=== PATIENT | male | born 1970 | race Caucasian/White ===

== ENCOUNTER → 2020-03-22 | Outpatient (CLI) | payer OTHER, SELFPAY ==
[2020-03-22 14:56] VITALS: BMI 31.0
[2020-03-22 19:50] LABS: Absolute Lymphocyte Count 1.27 X10^3/uL (0.83-4.51); Absolute Neutrophil Count 3.4 X10^3/uL (2.0-7.7); Basophil# 0.04 X10^3/uL; Basophil% 0.7 % (0-1); Eosinophil# 0.14 X10^3/uL; Eosinophils% 2.6 % (0-5); Hematocrit 50.4 % (40-54); Lymphocyte # 1.27 X10^3/ul (4.0); Lymphocyte % 23.5 % (19-41); Mean Corp Hgb Conc 31.7 g/dL (32-36); Mean Corpuscular Volume 94.6 fL (80-94); Mean Platelet Vol. 10.3 fl (6.2-12.0); Monocyte# 0.51 X10^3/uL; Monocyte% 9.4 % (0-10); NRBC Flagged by Analyzer 0 % (0-5); Neutrophil # 3.43 X10^3/uL (2.7-7.7); Neutrophil % 63.6 % (47-70); Platelet Count 248 K/mm3 (150-450); RBC Distribution Width CV 12.6 % (11.6-14.6); RBC Distribution Width SD 44.1 fl (35.1-43.9); Red Blood Count 5.33 M/mm3 (4.6-6.2); White Blood Count 5.4 K/mm3 (4.4-11.0)
[2020-03-22 20:34] LABS: ALB/GLOB Ratio 1.2 RATIO (0.9-2.4); AST(SGOT) 21 U/L (15-37); Alanine Aminotransfer ALT/SGPT 47 U/L (16-61); Albumin, Serum 4.4 g/dL (3.2-5.0); Alkaline Phosphatase 115 U/L (45-117); Anion Gap 5 (5-15); BUN 14 mg/dL (7-18); BUN/Creat Ratio 13.1 RATIO (10-20); Calcium,Total 9.2 mg/dL (8.5-10.1); Chloride 107 mmol/L (98-107); Cholesterol 273 mg/dL (200); Creatinine, Serum 1.07 mg/dL (0.70-1.30); EST Glomerular Filtration Rate 77 mL/min (>60); Est Glom Filt Rate - Afr Amer 94 mL/min (>60); Globulin 3.6 g/dL (2.2-4.2); Glucose 88 mg/dL (74-106); High Density Lipoprotein 51 mg/dL; Sodium Level 140 mmol/L (136-145); Triglycerides 106 mg/dL; Very Low Density Lipoprotein 21 mg/dL (5-40)
== END | disposition home or self-care (01) ==
PROVIDERS: Visit Provider Nurse Practitioner
DX: I10 Essential (primary) hypertension (principal)
CPT/HCPCS: 80053; 80061; 84443; 85025

== ENCOUNTER 2020-06-08 08:00 | Outpatient (RCR) | payer OTHER, SELFPAY ==
[2020-04-17 17:31] VITALS: BMI 31.0
[2020-06-08] MEDS: COVID-19 VACC, MRNA(PFIZER)/PF 30 MCG/0.3 ML SYRINGE IM (11:47)
[2020-06-29] MEDS: COVID-19 VACC, MRNA(PFIZER)/PF 30 MCG/0.3 ML SYRINGE IM (11:16)
== END 2020-06-08 23:59 ==
LOC: IMMUN 08:00
PROVIDERS: Visit Provider Family Medicine
DX: Z23 Encounter for immunization (principal)
CPT/HCPCS: 0001A; 0002A; 91300

== ENCOUNTER 2021-06-14 22:20 | Outpatient (CLI) | payer OTHER, SELFPAY ==
[2021-06-14 22:43] LABS: ALB/GLOB Ratio 1.1 RATIO (0.9-2.4); AST(SGOT) 22 U/L (15-37); Alanine Aminotransfer ALT/SGPT 36 U/L (16-61); Albumin, Serum 4.1 g/dL (3.2-5.0); Alkaline Phosphatase 116 U/L (45-117); Anion Gap 3 (5-15); BUN 13 mg/dL (7-18); BUN/Creat Ratio 9.6 RATIO (10-20); Calcium,Total 9.5 mg/dL (8.5-10.1); Chloride 110 mmol/L (98-107); Cholesterol 272 mg/dL (200); Creatinine, Serum 1.35 mg/dL (0.70-1.30); EST Glomerular Filtration Rate 59 mL/min (>60); Est Glom Filt Rate - Afr Amer 71 mL/min (>60); Globulin 3.8 g/dL (2.2-4.2); Glucose 123 mg/dL (74-106); High Density Lipoprotein 51 mg/dL; Potassium 5.1 mmol/L (3.5-5.1); Protein, Total 7.9 g/dL (6.4-8.2); Sodium Level 143 mmol/L (136-145); Triglycerides 125 mg/dL; Very Low Density Lipoprotein 25 mg/dL (5-40)
[2021-06-14 22:47] LABS: Absolute Lymphocyte Count 1.48 X10^3/uL (0.83-4.51); Basophil# 0.04 X10^3/uL; Basophil% 0.6 % (0-1); Eosinophil# 0.12 X10^3/uL; Eosinophils% 1.7 % (0-5); Hematocrit 50.4 % (40-54); Hemoglobin 16.7 g/dL (13.0-16.5); Lymphocyte # 1.48 X10^3/ul (0.83-4.51); Lymphocyte % 20.6 % (19-41); Mean Corp Hgb Conc 33.1 g/dL (32-36); Mean Corpuscular Hgb 31.3 pg (27.0-32.0); Mean Corpuscular Volume 94.4 fL (80-94); Mean Platelet Vol. 11.1 fl (6.2-12.0); Monocyte# 0.51 X10^3/uL; Monocyte% 7.1 % (0-10); NRBC Flagged by Analyzer 0 % (0-5); Neutrophil # 5.02 X10^3/uL (2.7-7.7); Neutrophil % 69.7 % (47-70); Platelet Count 299 K/mm3 (150-450); RBC Distribution Width CV 12.9 % (11.6-14.6); RBC Distribution Width SD 44.6 fl (35.1-43.9); Red Blood Count 5.34 M/mm3 (4.6-6.2); White Blood Count 7.2 K/mm3 (4.4-11.0)
== END 2021-06-14 23:59 | disposition home or self-care (01) ==
PROVIDERS: Nurse Practitioner
DX: Z00.00 Encounter for general adult medical examination without abnormal findings (principal); Z12.5 Encounter for screening for malignant neoplasm of prostate
CPT/HCPCS: 80053; 80061; 84153; 85025; G0103

== ENCOUNTER → 2021-09-11 | Outpatient (CLI) | payer OTHER, SELFPAY ==
[2021-09-11 21:26] LABS: Absolute Lymphocyte Count 1.35 X10^3/uL (0.83-4.51); Absolute Neutrophil Count 4.2 X10^3/uL (2.0-7.7); Basophil# 0.04 X10^3/uL; Basophil% 0.7 % (0-1); Eosinophil# 0.11 X10^3/uL; Eosinophils% 1.8 % (0-5); Hematocrit 45.5 % (40-54); Lymphocyte # 1.35 X10^3/ul (0.83-4.51); Lymphocyte % 22.4 % (19-41); Mean Corpuscular Hgb 30.7 pg (27.0-32.0); Mean Corpuscular Volume 93.2 fL (80-94); Mean Platelet Vol. 10.6 fl (6.2-12.0); Monocyte# 0.34 X10^3/uL; Monocyte% 5.6 % (0-10); NRBC Flagged by Analyzer 0 % (0-5); Neutrophil # 4.15 X10^3/uL (2.7-7.7); Platelet Count 274 K/mm3 (150-450); RBC Distribution Width SD 44.7 fl (35.1-43.9); Red Blood Count 4.88 M/mm3 (4.6-6.2)
[2021-09-11 22:38] LABS: ALB/GLOB Ratio 1.1 RATIO (0.9-2.4); AST(SGOT) 21 U/L (15-37); Alanine Aminotransfer ALT/SGPT 44 U/L (16-61); Albumin, Serum 3.9 g/dL (3.2-5.0); Alkaline Phosphatase 105 U/L (45-117); Anion Gap 9 (5-15); BUN 14 mg/dL (7-18); BUN/Creat Ratio 12.6 RATIO (10-20); CRP, High Sensitivity Cardiac 3.69 mg/L; Calcium,Total 9.3 mg/dL (8.5-10.1); Chloride 108 mmol/L (98-107); Creatinine, Serum 1.11 mg/dL (0.70-1.30); EST Glomerular Filtration Rate 74 mL/min (>60); Est Glom Filt Rate - Afr Amer 89 mL/min (>60); Globulin 3.6 g/dL (2.2-4.2); Glucose 145 mg/dL (74-106); Potassium 3.9 mmol/L (3.5-5.1); Protein, Total 7.5 g/dL (6.4-8.2); Sodium Level 138 mmol/L (136-145); Thyroid Stim Hormone (TSH) 1.69 uIU/mL (0.358-3.74)
[2021-09-13 13:21] LABS: PSA, Free 1.21 ng/mL; PSA, Free % 10.4 % (.); PSA, Total Ultrasensitive 11.6 ng/mL (0.0-4.0)
== END | disposition home or self-care (01) ==
PROVIDERS: Referring Provider Nurse Practitioner; Visit Provider Nurse Practitioner
DX: I10 Essential (primary) hypertension (principal); R55 Syncope and collapse; R97.20 Elevated prostate specific antigen [PSA]
CPT/HCPCS: 80053; 84153; 84154; 84443; 85025; 86141

== ENCOUNTER → 2021-12-12 | Outpatient (CLI) | payer OTHER, SELFPAY | END | disposition home or self-care (01) | PROVIDERS: PCP Nurse Practitioner; Referring Provider Registered Nurse; Visit Provider Registered Nurse | DX: R97.20 Elevated prostate specific antigen [PSA] (principal); Z12.5 Encounter for screening for malignant neoplasm of prostate | CPT/HCPCS: 36415; 84153 ==

== ENCOUNTER → 2021-12-30 | Outpatient (CLI) | payer OTHER, SELFPAY ==
--- NOTE | 2021-12-30 | PROSBIL_PTH ---
PATIENT: PEDRO HDZ LOC: [facility] U#:[id number] AGE/SX: 51/M ROOM: RE12/30/[address]: Dr. Ken Mart MD : 1970 BED: DIS: 12/30/2021 SPEC #: [id number] RECD: 12/30/21 16:15 STATUS: BERTHA RENarendra #: [id number] SABINE: 12/30/21 00:[address]: Ken Mart DEPT: SURGICAL PATHOLOGY RECD BY: Charanjit Ahmadi ENTERED: 12/31/21 11:44 SP TYPE: PROST BX ALLISON DR: Nichole Turk, ORTHOPEDIC PHYSICAL THERAPIST-C Tissues: A - PROSTATE RIGHT B - PROSTATE RIGHT C - PROSTATE RIGHT D - PROSTATE LEFT E - PROSTATE LEFT F - PROSTATE LEFT Procedures: PROSTATE BX HEADER OPERATION: Prostate biopsy PRE-OP DIAGNOSIS: Elevated PSA R97.20 TISSUE SUBMITTED: A - Right apex, B - Right mid, C - Right base, D - Left apex, E - Left mid, F - Left base MICROSCOPIC DIAGNOSIS A. Right prostate, apex, core biopsy: Adenocarcinoma. Thelma grade: 7 (3+4) Cores involved: 1 out of 2 cores Tissue involved: 60% Greatest tumor length: 5 millimeters Perineural invasion: Present B. Right prostate, mid, core biopsy: Adenocarcinoma. Thelma grade: 7 (3+4) Cores involved: 2 out of 2 cores Tissue involved: 65% Greatest tumor length: 11.5 millimeters C. Right prostate, base, core biopsy: Adenocarcinoma. Thelma grade: 7 (3+4) Cores involved: 2 out of 2 cores Tissue involved: 95% Greatest tumor length: 11.5 millimeters Perineural invasion: Present D. Left prostate, apex, core biopsy: Focal high-grade prostatic intraepithelial neoplasia (HGPIN). Focal acute inflammation. E. Left prostate, mid, core biopsy: Adenocarcinoma. Thelma grade: 7 (3+4) Cores involved: 1 out of 2 cores Tissue involved: 20% Greatest tumor length: 3 millimeters F. Left prostate, base, core biopsy: Adenocarcinoma. [place] grade: 7 (3+4) Cores involved: 1 out of 2 cores Tissue involved: 50% Greatest tumor length: 7.5 millimeters AM:nadia 01/01/2022 COMMENT Case has been reviewed in consultation with Dr. Vargas who concurs with the above diagnosis. IDC:SJ MICROSCOPIC DESCRIPTION Slides are reviewed. GROSS DESCRIPTION A - Received is one container designated prostate, right apex. The specimen consists of one elongated fragment of light weber-white soft tissue measuring 1.2 cm in length and 0.1 cm in diameter. The specimen is totally submitted in one cassette. B - Received is one container designated prostate, right mid. The specimen consists of two elongated fragments of light weber-white soft tissue each measuring 1.4 cm in length and 0.1 cm in diameter. The specimen is totally submitted in one cassette. C - Received is one container designated prostate, right base. The specimen consists of two elongated fragments of light weber-white soft tissue measuring 1 and 1.5 cm in length and 0.1 cm in diameter. The specimen is totally submitted in one cassette. D - Received is one container designated prostate, left apex. The specimen consists of one elongated fragment of light weber-white soft tissue measuring 1.5 cm in length and 0.1 cm in diameter. The specimen is totally submitted in one cassette. E - Received is one container designated prostate, left mid. The specimen consists of two elongated fragments of light weber-white soft tissue each measuring 1.5 cm in length and 0.1 cm in diameter. The specimen is totally submitted in one cassette. F - Received is one container designated prostate, left base. The specimen consists of two elongated fragments of light weber-white soft tissue each measuring 2 cm in length and 0.1 cm in diameter. The specimen is totally submitted in one cassette. / SJ:rg 12/31/2021 TC:0 [facility]: [id number] [id number]
== END | disposition home or self-care (01) ==
LOC: LABSPEC 16:24
PROVIDERS: PCP Nurse Practitioner; Visit Provider Urology
DX: C61 Malignant neoplasm of prostate (principal)
CPT/HCPCS: 88305; G0416

== ENCOUNTER → 2022-01-31 | Outpatient (CLI) | payer OTHER, SELFPAY ==
--- NOTE | 2022-01-31 07:18 | CT_ITS ---
STUDY: CT ABDOMEN AND PELVIS WITH CONTRAST REASON FOR EXAM: Male, 51 years old. Staging for prostate cancer -- eval for pelvic disease/lymphadenopathy RADIATION DOSAGE (If Supplied By Facility): CTDIvol = ( 21.38 ) mGy, DLP = ( 1358.19 ) mGycm TECHNIQUE: Transaxial images were obtained from the dome of the diaphragm to the symphysis pubis with oral contrast. IV 100mL Isovue-300 was administered. Sagittal and coronal images were reconstructed. Individualized dose optimization techniques were used for this CT. COMPARISON: None. FINDINGS: The visualized lung bases are unremarkable. The visualized portions of the heart are within normal limits. Normal liver. Normal gallbladder and extrahepatic biliary system. Normal spleen. Normal pancreas. Normal bilateral adrenal glands. There is 0.6 cm cyst of the right kidney. Normal left kidney. Normal visualized stomach. Normal small intestine. Normal colon. The appendix is visualized and appears normal. Normal abdominal aorta. Normal inferior vena cava. Normal retroperitoneum. Normal urinary bladder. There is no free fluid in the abdomen or pelvis. There are right external iliac lymph nodes measuring up to 1.5 cm Normal abdominal wall. There is degenerative change of the spine and hips. CT/Abdomen/Pelvis WITH Contrast IMPRESSION: No dominant mass. No hydronephrosis. Mildly enlarged right iliac lymph nodes. Electronically Signed: Hubert Hinojosa MD at 8:29 EST ,
[2022-01-31 07:46] LABS: EGFR FINGERSTICK > 60.0000 mL/min (>60)
== END | disposition home or self-care (01) ==
LOC: CT 07:14
PROVIDERS: PCP Nurse Practitioner; Referring Provider Student in an Organized Health Care Education/Training Program; Visit Provider Student in an Organized Health Care Education/Training Program
DX: C61 Malignant neoplasm of prostate (principal)
CPT/HCPCS: 74177; Q9967

== ENCOUNTER → 2022-02-04 | Outpatient (CLI) | payer OTHER, SELFPAY ==
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
== END | disposition home or self-care (01) ==
PROVIDERS: PCP Nurse Practitioner; Referring Provider Urology; Visit Provider Urology
DX: C61 Malignant neoplasm of prostate (principal)
CPT/HCPCS: 78306; A9503

== ENCOUNTER 2022-04-02 10:24 | Day surgery (SDC) | payer OTHER, SELFPAY ==
[2022-04-02] MEDS: Lactated Ringers 1,000 ML 15 ML IV (11:03)
[2022-04-02 11:04] VITALS: BP 135/84; PULSE 64; RESP 18; TEMP 36.3; O2SAT 100; BMI 33.0
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
--- NOTE | 2022-04-02 11:26 | DCINST_ITS ---
Discharge Instructions Diet Discharge Diet: No restrictions and Light diet - advance as tolerated Activity Discharge Activity: Return to Normal Activity Follow Up Care Please Follow Up With: Ken Mart MD When: next appt for next eligard shot Test Results: Test results from this visit will be discussed in further detail at your follow- up appointment, if applicable. Discharge Plan Admission Primary Reason for Your Visit: prostate ca Attending Provider: Ken Mart Primary Care Provider: Nichole Turk NP Discharge Orders/Prescriptions Prescriptions: New ciprofloxacin HCl [Cipro] 500 mg tablet 500 mg PO BID Qty: 10 0RF Continued tamsulosin [Flomax] 0.4 mg capsule 0.4 mg PO DAILY epinephrine 0.3 mg/0.3 mL auto-injector 0.3 mg IM ONCE Rx Instructions: as a single dose Referrals / Follow Up: Ken Mart MD [Med Staff - Active Staff] - Nichole Turk NP, TEACHING DIETITIAN-C [Primary Care Provider] - Disposition Disposition (needs filled in before D/C Order can be placed): Home, Self Care
[2022-04-02] MEDS: Ciprofloxacin 400 MG/200 ML BAG 200 MG IV (12:07)
--- NOTE | 2022-04-02 12:15 | OP.PCM_ITS ---
Report of Operation Date of Procedure: 04/02/22 Pre-Operative Diagnosis: Prostate cancer Post-Operative Diagnosis: The same Surgery/Procedure Performed:: Ultrasound-guided placement of gold markers and spacer at risk gel matrix Description of Surgical Findings:: In the preoperative area I reviewed with the patient how the procedure is done we talked about the risk of the procedure including the risk of infection, bleeding, migration of the spacer gel, the patient is planning to have radiation to the prostate he understands that the spacer gel has demonstrated benefit in reducing the risk of toxicity from the ration radiation to the rectum but there is no guarantees that this spacer gel will prevent any serious complications or toxicity to the rectum or bowels. After reviewing this with the patient and his family organ to proceed with placement of a spacer gel matrix. Patient was taken back to the operating room after smooth induction of anesthesia he was placed supine on the table. The penis and testicles were prepped and draped in usual sterile fashion, ultrasound probe was placed into the rectum and biplanar ultrasound was performed on the prostate. Identified the base mid and apex of the prostate identified the transition zone prostate. Then using a needle the first computer information science professor was placed into the right base of the prostate, the second computer information science professor was placed in the left base of the prostate, and the third core marker was placed in the right apex of the prostate after all 3 markers were placed the placement of the markers were confirmed by ultrasonography. Then the genitals and perineum were prepped and draped in usual sterile fashion. I then introduced a biplanar ultrasound probe into the rectum and performed ultrasonography and identified the Denonvilliers' fascia the prostate mid base and apex and seminal vesicles. The spacer gel mix was then prepared on the back table per manufactures instruction. Under ultrasound guidance in the midline perineum a bevel needle down we advanced through the perineum below the prostate into the space of Denonvilliers' fascia. This space which could be identified by ultrasound with a bright white layer between the prostate and the rectum. I then injected a puff of normal saline to identify the space further. After I confirmed that the needle was in the correct space in the mid prostate and the space of Denonvilliers' fascia between the rectum and the prostate. Then over the course of 15 seconds the gel matrix was injected slowly there was nice separation between the prostate and the rectum at the gel matrix was injected. The position of the gel matrix was confirmed by ultrasound. Then the injection needle was removed intact. Patient's perineum was cleaned patient was taken out of stirrups and then taken back to the PACU in good condition. Surgeon: Ken Mart Type of Anesthesia: General Admit VTE Documentation VTE Present on Admission: No VTE Mechan Device Prophylaxis: SCD's VTE Pharm Prophylaxis ordered?: No
[2022-04-02 12:30] VITALS: BP 120/78; BP 135/84; PULSE 81; RESP 16; TEMP 36.8; O2SAT 97
[2022-04-02 12:45] VITALS: BP 129/83; BP 135/84; PULSE 81; RESP 16; O2SAT 92
[2022-04-02 13:00] VITALS: BP 130/89; BP 135/84; PULSE 77; RESP 16; TEMP 36.4; O2SAT 95
--- NOTE | 2022-04-02 13:30 | SUR.PHASEII ---
Dr. hargrove ordered pt cipro 500 mg bid yesterday for 3 days, however today he ordered pt the same medication for [address] desir, pt needs to take cipro for 3 days, does not need to take the script that was ordered today. relayed information to pt and his .
[2022-04-02 13:37] VITALS: BP 131/86; BP 135/84; PULSE 75; RESP 16; O2SAT 96
== END 2022-04-02 13:40 | disposition home or self-care (01) ==
LOC: SDC 10:28 → AC 10:30
PROVIDERS: PCP Nurse Practitioner; Referring Provider Urology; Visit Provider Urology
PROC: (CPT 55874; principal; 2022-04-02 12:15)
DX: C61 Malignant neoplasm of prostate (principal); I10 Essential (primary) hypertension; E78.5 Hyperlipidemia, unspecified; Z79.899 Other long term (current) drug therapy
CPT/HCPCS: 55876; 55874; 00902; J7120; J0744; J2405

== ENCOUNTER → 2022-04-09 | Outpatient (CLI) | payer OTHER, SELFPAY ==
--- NOTE | 2022-04-09 16:45 | MRI_ITS ---
STUDY: MR PROSTATE GLAND/ PELVIS WITH T WITHOUT CONTRAST REASON FOR EXAM: Male, 52 years old. prostate ca with intermediate recurrence risk, eval disease extent -- planning for XRT TECHNIQUE: Standardized fat and water weighted pulse sequences were obtained in all 3 orthogonal planes, pre-and post contrast administration. 20ml iv clariscan was administered for the contrast portion of the examination. COMPARISON: Nuclear medicine whole body bone scan dated February 04, 2022. CT of abdomen and pelvis dated January 31, 2022. PET/CT scan dated March 05, 2022. Radiation CT therapy planning exam dated April 09, 2022. FINDINGS: Prostate gland volume/size: 4.71 x 3.02 x 4.56 cm in diameter. Anterior fibromuscular stroma: Normal Peripheral zone: Diffuse heterogeneity with a predominance of lobular low signal foci in the middle and inner one third its aspects of the right-sided peripheral zone, and to a much lesser extent the left side of the peripheral zone. Single diffusely enhancing nodule in the posterior medial aspect of the right side of the peripheral zone measures 6.4 mm in diameter. This nodule also demonstrates low signal on ADC which is concerning for malignancy. Central zone: Diffuse heterogeneity and enhancement typical of prosthetic hyperplasia. Transitional zone: Diffuse heterogeneity and enhancement typical of prosthetic hyperplasia. Prostate capsule: Intact Seminal vesicles: Normal Pelvic sidewall lymphadenopathy: None demonstrated on the current study. Bony structures: No visualized lytic or blastic lesions of the bony structures are Fluid distended with mild to moderate circumferential thickening of the wall of the bladder and trabeculation consistent with some degree of nonspecified cystitis. No bladder masses or stones are seen. Normal visualized small intestine. Normal visualized colon. There is no pelvic fluid. There is no pelvic mass lesion or lymphadenopathy. Normal visualized pelvic arteries. Normal osseous structures. Normal abdominal wall. MRI/Pelvis W/WO Contrast IMPRESSION: 1. Diffuse heterogeneity with a predominance of lobular low signal foci in the middle and inner one third its aspects of the right-sided peripheral zone, and to a much lesser extent the left side of the peripheral zone. Single diffusely enhancing nodule in the posterior medial aspect of the right side of the peripheral zone measures 6.4 mm in diameter. This nodule also demonstrates low signal on ADC which is concerning for malignancy. 2. PI-RADS 4: high (clinically significant cancer is likely to be present) Reference information: Normal prostate tissue Benign prostatic hypertrophy cancer/tumor - low signal peripheral , transitional, and central zones malignancy appears as bright on DWI and low signal on ADC map Prostate imaging-reporting and data system (PI-RADS) PI-RADS 1: very low (clinically significant cancer is highly unlikely to be present) PI-RADS 2: low (clinically significant cancer is unlikely to be present) PI-RADS 3: intermediate (the presence of clinically significant cancer is equivocal) PI-RADS 4: high (clinically significant cancer is likely to be present) PI-RADS 5: very high (clinically significant cancer is highly likely to be present) PI-RADS X: component of exam technically inadequate or not performed Electronically Signed: Minh Ferreira MD at 10:35 EST ,
== END | disposition home or self-care (01) ==
PROVIDERS: PCP Nurse Practitioner; Visit Provider Student in an Organized Health Care Education/Training Program
DX: C61 Malignant neoplasm of prostate (principal)
CPT/HCPCS: 72197; A9575

== ENCOUNTER → 2022-07-07 | Outpatient (CLI) | payer OTHER, SELFPAY ==
[2022-07-07 18:08] LABS: PSA,Total- Diagnostic 0.16 ng/mL (0.0-4.0)
== END | disposition home or self-care (01) ==
LOC: LAB 16:29
PROVIDERS: PCP Nurse Practitioner; Referring Provider Urology; Visit Provider Urology
DX: C61 Malignant neoplasm of prostate (principal)
CPT/HCPCS: 36415; 84153

== ENCOUNTER → 2023-01-06 | Outpatient (CLI) | payer OTHER, SELFPAY ==
[2023-01-06 17:15] LABS: PSA,Total- Diagnostic 3.29 ng/mL (0.0-4.0)
== END | disposition home or self-care (01) ==
LOC: LAB 16:18
PROVIDERS: PCP Nurse Practitioner; Visit Provider Urology
DX: C61 Malignant neoplasm of prostate (principal); R97.20 Elevated prostate specific antigen [PSA]
CPT/HCPCS: 36415; 84153

== ENCOUNTER → 2023-06-30 | Outpatient (CLI) | payer OTHER, SELFPAY ==
[2023-06-30 17:37] LABS: PSA,Total- Diagnostic 1.49 ng/mL (0.0-4.0)
== END | disposition home or self-care (01) ==
PROVIDERS: PCP Nurse Practitioner; Referring Provider Urology; Visit Provider Urology
DX: C61 Malignant neoplasm of prostate (principal); R97.20 Elevated prostate specific antigen [PSA]
CPT/HCPCS: 36415; 84153

== ENCOUNTER → 2023-12-31 | Outpatient (CLI) | payer OTHER, SELFPAY ==
[2023-12-31 16:00] LABS: PSA,Total- Diagnostic 1.12 ng/mL (0.0-4.0)
== END | disposition home or self-care (01) ==
PROVIDERS: PCP Nurse Practitioner; Referring Provider Urology; Visit Provider Urology
DX: C61 Malignant neoplasm of prostate (principal); R97.20 Elevated prostate specific antigen [PSA]
CPT/HCPCS: 36415; 84153

== ENCOUNTER → 2024-07-11 | Outpatient (CLI) | payer OTHER, SELFPAY ==
[2024-07-11 18:11] LABS: PSA,Total- Diagnostic 1.04 ng/mL (0.00-4.00)
== END | disposition home or self-care (01) ==
LOC: LAB 16:40
PROVIDERS: PCP Nurse Practitioner; Referring Provider Urology; Visit Provider Urology
DX: C61 Malignant neoplasm of prostate (principal)
CPT/HCPCS: 36415; 84153

== ENCOUNTER → 2025-02-08 | Outpatient (CLI) | payer OTHER, SELFPAY ==
--- OUTSIDE RECORDS SUMMARY | 2025-02-08 21:13 | XMS RPT_ITS | CCD ---
Author Organization [facility] Care Team Providers Care Deicer Inspector Pneumatic Name Role Phone Burke RODRÍGUEZ, ENGINE DISPATCHER-C Nichole Primary Care Provider Dr. Joseph Senior Attending Provider Dr. Ken Mart Referring Provider Burke RODRÍGUEZ, ENGINE DISPATCHER-C Nichole Referring Provider Dr. oJseph Senior Referring Provider Dr. Angel Romero Attending Unava ilable UNKNOWN, UNKNOWN Referring Unavailable Burke RODRÍGUEZ, ENGINE DISPATCHER-C Nichole Primary Care Provider Burke RODRÍGUEZ, ENGINE DISPATCHER-C Nichole Referring Provider Dr. Joseph Senior Attending Provider Dr. Joseph Senior Referring Provider [phone] Unavailable Primary Care Provider Unavailabl e Burke ENGINE DISPATCHER-C, Nichole Primary Care Provider Burke ENGINE DISPATCHER-C, Nichole Attending Provider Burke RODRÍGUEZ-C, Nichole Referring Provider Brittny MCMAHAN, Dr. Ken Gallardo Attending Provider [phone] Dr. Ken Mart MD Referring Provider [phone] Ken Mart Attending Unavailable Burke ENGINE DISPATCHER, Nichole Primary Care Unavailable Ken Mart Referring Unavailable Burke RODRÍGUEZ, Nichole Primary Care Unavailable Ken Mart Referring Unavailable Ken Mart Attending Unavailable Allergies Allergy Classification Reported Allergen(s) Allergy Type Date of Onset Reaction(s) Facility (4 sources) Bee/Wasp/Ant venom Propensity to adverse reactions 1 leg turned purple [facility] Work Phone: (14 sources) Penicillins; Translations: [Penicillins] Allergy to substance 5 Anaphylaxis [facility] (8 sources) bee venom protein (honey bee) Propensity to adverse reactions 8 Anaphylaxis [facility] Comment on above: LEG TURNED PURPLE (1 source) bee venom protein (honey bee) Drug allergy (disorder) 3 [facility] Repository Medications Current Medications Medication Drug Class(es) Dates Sig (Normalized) Sig (Original) azithromycin 250 mg oral tablet (1 source) Macrolide Antimicrobial Start: 05-23-2024 azithromycin (Zithromax) 250 mg tablet Indications: Bronchitis Take 2 tabs (500 mg) by mouth today, than 1 daily for 4 days. 6 tablet 05/23/2024 Active doxycycline hyclate 100 mg oral capsule (1 source) Tetracycline-class Drug Start: 06-10-2024 take 1 capsule by mouth twice daily Doxycycline Hyclate 100 mg capsule Active 100 mg PO TWICE A DAY June 10, 2024 12:00am [id number] 0.3 ml EPINEPHrine 1 mg/ml auto-injector (11 sources) alpha-Adrenergic Agonist, beta-Adrenergic Agonist, Catecholamine Start: 04-17-2020 Epinephrine 0.3 mg/0.3 mL auto-injector Active 0.3 mg IM ONCE April 17, 2020 1:00am as a single dose hydrocortisone acetate 25 mg rectal suppository (2 sources) Corticosteroid Start: 05-06-2022 Hydrocortisone Acetate Active 25 MG RC TWICE A DAY May 06, 2022 1:00am take one suppository per rectum twice daily Hydrocortisone Acetate 25 mg suppository (1 source) Start: 05-06-2022 Hydrocortisone Acetate 25 mg suppository Active 25 mg RC TWICE A DAY May 06, 2022 1:00am take one suppository per rectum twice daily predniSONE 20 mg oral tablet (20 sources) Start: 06-10-2024 take 2 tablets by mouth once daily Prednisone 20 mg tablet Active 40 mg PO DAILY June 10, 2024 12:00am Start: 05-23-2024 End: 05-28-2024 take 1 tablet by mouth twice daily predniSONE (Deltasone) 20 mg tablet Indications: Bronchitis Take 1 tablet (20 mg) by mouth 2 times a day for 5 days. 10 tablet 05/23/2024 05/28/2024 Active Start: 11-04-2022 End: 11-08-2022 Prednisone 10 mg tablet Disc ontinued 20 mg PO TWICE A DAY as needed for poison michael 30 November 04, 2022 5:48pm November 07, 2022 12:00am November 08, 2022 12:10am 2 po bid 4D,1 po bid for 4 D, 1 po qd for 4 D 1/2 po qd for 2 days Start: 11-04-2022 End: 11-08-2022 Prednisone Discontinued 20 M G PO TWICE A DAY 30 November 04, 2022 5:48pm November 08, 2022 12:10am 2 po bid 4D,1 po bid for 4 D, 1 po qd for 4 D 1/2 po qd for 2 days Start: 07-25-2020 End: 08-06-2020 take 4 tablets by mouth once daily in the morning, then take 3 tablets by mouth once daily, then take 2 tablets by mouth once daily, then take 1 tablet by mouth once daily Prednisone 10 mg tablet Discontinued 10 mg PO EVERY MORNING 30 July 25, 2020 12:00am August 05, 2020 12:00am August 06, 2020 12:01am 4 tablets daily x3 days, then 3 tablets daily x3 days, then 2 tablets daily x3 days, then 1 tablet daily x3 days Start: 10-17-2019 End: 10-29-2019 Prednisone 10 mg tablet Disc ontinued 10 mg PO daily 30 October 17, 2019 12:00am October 28, 2019 12:00am October 29, 2019 12:02am Take 4 tabs once daily days 1-3 3 tabs once daily days 4-6 2 tabs once daily days 7-9 and 1 tab once daily days 10-12. tamsulosin hydrochloride 0.4 mg oral capsule (9 sources) alpha-Adrenergic Christine Start: 12-30-2021 take 1 capsule by mouth once daily Tamsulosin (Flomax) 0.4 mg capsule Active 0.4 mg PO DAILY January 21, 2022 12:00am Completed/Discontinued Medications Medication Drug Class(es) Dates Sig (Normalized) Sig (Original) ciprofloxacin 500 mg oral tablet (11 sources) Quinolone Antimicrobial Start: 04-01-2022 End: 11-04-2022 take 1 tablet by mouth twice daily Ciprofloxacin Hcl (Cipro) 500 mg tablet Discontinued 500 mg PO TWICE A DAY April 02, 2022 1:00am November 04, 2022 5:43pm Start: 09-12-2021 take 1 tablet by diana th twice daily Ciprofloxacin Hcl (Cipro) 500 mg tablet Active 500 MG PO TWICE A DAY September 11, 2021 11:00pm lisinopril 20 mg oral tablet (20 sources) Angiotensin Converting Enzyme Inhibitor Start: 03-22-2020 End: 06-14-2021 take 1 tablet by mouth once daily Lisinopril 20 mg tablet Discontinued 20 mg PO DAILY April 17, 2020 6:34pm June 14, 2021 3:42pm prednisoLONE 10 mg disintegrating oral tablet (2 sources) Corticosteroid Start: 11-18-2022 End: 06-10-2024 take 1 tablet by mouth once daily Prednisolone Sodium Phosphate 10 mg tablet,disintegra ting Discontinued 10 mg PO DAILY November 18, 2022 12:00am June 10, 2024 8:16pm sulfamethoxazole 800 mg / trimethoprim 160 mg oral tablet (12 sources) Dihydrofolate Reductase Inhibitor Antibacterial, Sulfonamide Antimicrobial Start: 06-17-2021 End: 07-08-2021 take 1 tablet by mouth twice daily Sulfamethoxazole- Trimethoprim 800-160 MG Oral Tablet take 1 tablet by mouth twice a day FOR 21 DAYS Quantity: 42 Refills: 0 Ordered: 17-Jun-2021 DO Start : 17-Jun-2021 Active Start: 06-17-2021 End: 07-08-2021 take 1 tablet by mouth twice daily Sulfamethoxazole-Trimethoprim Discontinu ed 1 TABLET PO TWICE A DAY 42 June 17, 2021 12:00am July 08, 2021 12:03am Problems Problem Classification Problem Date Documented Date Episodic/Chronic Allergic reactions (15 sources) Irritant contact dermatitis due to plant; Translations: [Irritant contact dermatitis due to plants, except food] 10-17-2019 Episodic Anal and rectal conditions (3 sources) Acute proctitis; Translations: [Other specified diseases of anus and rectum] 05-06-2022 Episodic Cancer of prostate (14 sources) Primary malignant neoplasm of prostate; Translations: [Malignant neoplasm of prostate] Onset: 07-15-2024 Chronic Chronic obstructive pulmonary disease and bronchiectasis (2 sources) Bronchitis; Translations: [Bronchitis, not specified as acute or chronic] 05-23-2024 Episodic Essential hypertension (11 sources) Hypertensive disorder; Translations: [Essential (primary) hypertension] 04-18-2020 Chronic Fever of unknown origin (2 sources) Fever; Translations: [Fever, unspecified] 05-24-2024 Episodic Hyperplasia of prostate (1 source) Benign prostatic hyperplasia; Translations: [Hypertrophy (benign) of prostate with urinary obstruction and other lower urinary tract symptoms (LUTS)] Chronic Immunizations and screening for infectious disease (1 source) Contact with or exposure to other viral diseases; Translations: [Exposure to COVID-19 virus] 05-23-2024 Episodic Inflammation; infection of eye (except that caused by tuberculosis or sexually transmitteddisease) (11 sources) Allergic dermatitis of right upper eyelid; Translations: [Contact dermatitis of right upper and lower eyelids] 07-25-2020 Episodic Intracranial injury (1 source) Traumatic AND/OR non-traumatic brain injury; Translations: [Intracranial injury of other and unspecified nature without mention of open intracranial wound, unspecified state of consciousness] Episodic Lymphadenitis (7 sources) Pelvic lymphadenopathy; Translations: [Localized enlarged lymph nodes] 02-03-2022 Episodic Other connective tissue disease (1 source) H/O: arthritis; Translations: [Personal history of arthritis] Episodic Other connective tissue disease (1 source) H/O: back problem; Translations: [Personal history of other musculoskeletal disorders] Episodic Other injuries and conditions due to external causes (1 source) Finding with explicit context; Translations: [Personal history of other injury] Episodic Other screening for suspected conditions (not mental disorders or infectious disease) (5 sources) Imaging result abnormal; Translations: [Abnormal findings on diagnostic imaging of other specified body structures] 02-19-2022 Chronic Other screening for suspected conditions (not mental disorders or infectious disease) (10 sources) Raised prostate specific antigen; Translations: [Elevated prostate specific antigen [PSA]] 09-11-2021 Episodic Other skin disorders (11 sources) Disorder of skin; Translations: [Disorder of the skin and subcutaneous tissue, unspecified] 03-22-2020 Episodic Other skin disorders (1 source) H/O: skin disorder; Translations: [Personal history of diseases of skin and subcutaneous tissue] Episodic Other upper respiratory infections (1 source) Acute maxillary sinusitis; Translations: [Acute maxillary sinusitis, unspecified] 06-10-2024 Episodic Residual codes; unclassified (1 source) History of clinical finding in subject; Translations: [Personal history of unspecified mental disorder] Episodic Syncope (10 sources) Syncope; Translations: [Syncope and collapse] 09-11-2021 Episodic Results Test Name Value Interpretation Reference Range Facility Diagnostic total prostate sp ecific antigen (PSA) measurementOrdered By: Ken Mart on 07-11-2024 Prostate Specific Antigen Total 1.04 ng/mL 0.00-4.00 [facility] Comment on above: This test was perfor med using the [employer] tPSA method. Measured values of a patient sample can vary depending on the testing procedure used. PSA values determined on patient samples by different testing procedures cannot be used interchangeably. If there is a change in PSA assays while monitoring therapy, sequential testing should be performed to confirm baseline values. PSA,Total- Diagnosticon 06-22 PSA, DIAGNOSTIC 1.04 ng/mL Normal 0.00-4.00 [facility] Comment on above: Result Comment: This test was performed using the [employer] tPSA method. Measured values of a patient??sample can vary depending on the testing procedure used. PSA values determined on patient samples by different testing procedures cannot be used interchangeably. If there is a change in PSA assays while monitoring therapy, sequential testing should be performed to confirm baseline values. Performed By: #### L [id number] #### [facility] Laboratory [facility] [place], [address] No Panel Informationon 05-23 Interpretation and review of laboratory results Normal [facility] Work Phone: [facility] Work Phone: POCT Covid-19 Rapid Antigeno n 05-23-2024 SARS-CoV-2 (COVID-19) Ag IA.rapid Ql (Resp) Presumptive negative test for SARS-CoV-2 (no antigen detected) Presumptive negative test for SARS-CoV-2 (no antigen detected) [facility] Work Phone: POCT Influenza A/B manually resultedon 05-23-2024 POC Rapid Influenza A Negative Negative [facility] Work Phone: POC Rapid Influenza B Negative Negative [facility] Work Phone: XR Chest 2 Viewson No acute abnormaliti es and no change since the prior exam Signed by: Shama Nazario 05/23/2024 7:45 PM Dictation workstation: [id number] [facility] Interpreted By: Shama Dubose ch, STUDY: XR CHEST 2 VIEWS 05/23/2024 7:22 pm INDICATION: Signs/Symptoms:low oxygen and fever COMPARISON: 02/18/2019 ACCESSION NUMBER(S): [id number] ORDERING CLINICIAN: BRANDON OMALLEY TECHNIQUE: Two views of the chest FINDINGS: There are no infiltrates or effusions. Pulmonary vascularity and cardiac silhouette appear normal. Mild pleural thickening is seen in the right lateral chest similar to the prior exam no pneumothorax [facility] Shama Nazario MD - 05/23/2024 Interpreted By: Shama Nazario, STUDY: XR CHEST 2 VIEWS 05/23/2024 7:22 pm INDICATION: Signs/Symptoms:low oxygen and fever COMPARISON: 02/18/2019 ACCESSION NUMBER(S): [id number] ORDERING CLINICIAN: BRANDON OMALLEY TECHNIQUE: Two views of the chest FINDINGS: There are no infiltrates or effusions. Pulmonary vascularity and cardiac silhouette appear normal. Mild pleural thickening is seen in the right lateral chest similar to the prior exam no pneumothorax IMPRESSION: No acute abnormalities and no change since the prior exam Signed by: Shama Nazario 05/23/2024 7:45 PM Dictation workstation: [id number] [facility] Work Phone: Radiology Study observation (narrative) [facility] Work Phone: XR Chest 2 ViewsOrdered By: Shama Nazario on 05-23-2024 [facility] Work Phone: PSA,Total- Diagnosticon 10-1 PSA, DIAGNOSTIC 1.12 ng/mL Normal 0.0-4.0 [facility] Comment on above: Result Comment: This test was performed using the TPSA assay method for the [employer] chemistry system. Values obtained with different assay methods cannot be used interchangably. When changing PSA assays in the course of monitoring a patient, additional sequential testing should be carried out to confirm baseline values. Performed By: #### L [id number] #### [facility] Laboratory [address] [place], [address] Basophil percentageOrdered B y: Ken Mart on 06-30-2023 Basophil percentage 1.49 ng/mL 0.0-4.0 [facility] Comment on above: This test was perfor med using the TPSA assay method for the[employer] chemistry system. Values obtained with differentassay methods cannot be used interchangably.When changing PSA assays in the course of monitoring apatient, additional sequential testing should be carriedout to confirm baseline values. No Panel InformationOrdered By: Dr. Mart on 07-07-2022 Prostate Specific Antigen Total 0.16 ng/mL 0.0-4.0 [facility] Comment on above: This test was perfor med using the TPSA assay method for the[employer] chemistry system. Values obtained with differentassay methods cannot be used interchangably.When changing PSA assays in the course of monitoring apatient, additional sequential testing should be carriedout to confirm baseline values. Basophil percentageOrdered B y: Dr. Senior on 01-31-2022 Creatinine [Mass/Vol] 1.0 mg/dL 0.70-1.30 [facility] No Panel InformationOrdered By: Dr. Senior on 01-31-2022 Bedside Estimated GFR (eGFR) > 60.0000 mL/min >60 [facility] No Panel Informationon 12-12 Prostate Specific Antigen Total 13.70 ng/mL 0.0-4.0 [facility] Work Phone: Comment on above: This test was perfor med using the TPSA assay method for the[employer] chemistry system. Values obtained with differentassay methods cannot be used interchangably.When changing PSA assays in the course of monitoring apatient, additional sequential testing should be carriedout to confirm baseline values. Absolute lymphocyte counton 09-11-2021 Lymphocytes Auto (Unsp spec) [#/Vol] 1.35 10*3/uL 0.83-4.51 [facility] Work Phone: Basophil percentageon 2021 Basophils/100 WBC (Bld) 0.7 % 0-1 [facility] Work Phone: Bilirubin [Mass/Vol] 0.30 mg/dL 0.20-1.00 [facility] Work Phone: Comment on above: For patients on eltr ombopag therapy, use of [employer] [place] TBIL is not recommended. Chloride [Moles/Vol] 108 mmol/L 98-107 [facility] Work Phone: Eosinophils/100 WBC (Bld) 1.8 % 0-5 [facility] Work Phone: Glucose [Mass/Vol] 145 mg/dL 74-106 [place] Work Phone: Comment on above: Fasting Glucose resu lt greater than or equal to 126 mg/dL suggests DIABETES MELLITUS per A.D.A. criteria. Neutrophils (Bld) [#/Vol] 4.2 10*3/uL 2.0-7.7 [facility] Work Phone: Neutrophils/100 WBC (Bld) 69.0 % 47-70 [facility] Work Phone: Potassium [Moles/Vol] 3.9 mmol/L 3.5-5.1 [facility] Work Phone: Protein [Mass/Vol] 7.5 g/dL 6.4-8.2 [place] Work Phone: Sodium [Moles/Vol] 138 mmol/L 136-145 [facility] Work Phone: WBC (Bld) [#/Vol] 6.0 10*3/uL 4.4-11.0 [place] Work Phone: Blood erythrocytes count (nu mber/volume)on 09-11-2021 RBC (Bld) [#/Vol] 4.88 10*6/uL 4.6-6.2 [facility] Work Phone: Blood hemoglobin measurement (mass/volume)on 09-11-2021 Hemoglobin (Bld) [Mass/Vol] 15.0 g/dL 13.0-16.5 [facility] Work Phone: Blood lymphocytes/100 leukoc yteson 09-11-2021 Lymphocytes/100 WBC (Bld) 22.4 % 19-41 [facility] Work Phone: Blood monocytes/100 leukocyt eson 09-11-2021 Monocytes/100 WBC (Bld) 5.6 % 0-10 [facility] Work Phone: Blood platelet mean volumeon 09-11-2021 Platelet mean volume (Bld) [Entitic vol] 10.6 fL 6.2-12.0 [facility] Work Phone: Determination of erythrocyte mean corpuscular volume (MCV)on 09-11-2021 MCV (RBC) [Entitic vol] 93.2 fL 80-94 [facility] Work Phone: Hematocrit Auto (Bld) [Volum e fraction]on 09-11-2021 Hematocrit (Bld) [Volume fraction] 45.5 % 40-54 [facility] Work Phone: Laboratory - Chemistry and C hemistry - challengeon 09-11-2021 ALP [Catalytic activity/Vol] 105 U/L 45-117 [facility] Work Phone: ALT [Catalytic activity/Vol] 44 U/L 16-61 [facility] Work Phone: CO2 [Moles/Vol] 21.0 mmol/L 21.0-32.0 [facility] Work Phone: Globulin (S) [Mass/Vol] 3.6 g/dL 2.2-4.2 [facility] Work Phone: Urea nitrogen/Creatinine [Mass ratio] 12.6 mg/mg 10-20 [facility] Work Phone: [phone] Laboratory - Hematology and Cell countson 09-11-2021 Erythrocyte distribution width (RBC) [Entitic vol] 44.7 fL 35.1-43.9 [facility] Work Phone: [phone] Erythrocyte distribution width (RBC) [Ratio] 13.0 % 11.6-14.6 [facility] Work Phone: [phone] Immature granulocytes/100 WBC (Bld) 0.500 % 0.0-0.9 [facility] Work Phone: [phone] Comment on above: IG% - Immature Granu locytes (promyelocytes, myelocytes and metamyelocytes) > 1% indicates that a LEFT SHIFT is Present. MCH (RBC) [Entitic mass] 30.7 pg 27.0-32.0 [facility] Work Phone: [phone] Nucleated RBC/100 WBC (Bld) [Ratio] 0 % 0-5 [facility] Work Phone: [phone] MCHC Auto (RBC) [Mass/Vol]on 09-11-2021 MCHC (RBC) [Mass/Vol] 33.0 g/dL 32-36 [facility] Work Phone: [phone] No Panel Informationon 09-11 C-Reactive Protein High Sensitivity 3.69 mg/L <3.00 [facility] Work Phone: [phone] Comment on above: Low Relative Risk of CVD <1.0 mg/L Average Relative Risk of CVD 1.0 - 3.0 mg/L High Relative Risk of CVD >3.0 mg/L Estimated GFR (MDRD) Amer 89 mL/min >60 [facility] Work Phone: [phone] Comment on above: GFR Calc Estimated GFR (MDRD) Non-Af Amer 74 mL/min >60 [facility] Work Phone: [phone] Comment on above: Non- GFR Calc Percent Free Prostate Specific Ag 1.21 ng/mL N/A [facility] Work Phone: [phone] Comment on above: [employer] methodol [employer]gy. Prostate Specific Antigen Total 11.6 ng/mL 0.0-4.0 [facility] Work Phone: Comment on above: [employer]CL[employer] methodol ogy.According to the [employer], Serum PSAshould decrease and remain at undetectable levels afterradical prostatectomy. The AUA defines biochemicalrecurrence as an initial PSA value 0.2 ng/mL or greaterfollowed by a subsequent confirmatory PSA value 0.2 ng/mLor greater. Values obtained with different assay methods orkits cannot be used interchangeably. Results cannot beinterpreted as absolute evidence of the presence or absenceof malignant disease. Thyroid Stimulating Hormone (TSH) 1.69 uIU/mL 0.358-3.74 [facility] Work Phone: Platelets bldon 09-11-2021 Platelets (Bld) [#/Vol] 274 10*3/uL 150-450 [facility] Work Phone: Serum or plasma albumin sylvain urement (mass/volume)on 09-11-2021 Albumin [Mass/Vol] 3.9 g/dL 3.2-5.0 [place] Work Phone: Serum or plasma albumin/glob ulin mass ratioon 09-11-2021 Albumin/Globulin [Mass ratio] 1.1 {ratio} 0.9-2.4 [facility] Work Phone: Serum or plasma calcium sylvain urement (mass/volume)on 09-11-2021 Calcium [Mass/Vol] 9.3 mg/dL 8.5-10.1 [place] Work Phone: Serum or plasma creatinine m easurement (mass/volume)on 09-11-2021 Creatinine [Mass/Vol] 1.11 mg/dL 0.70-1.30 [facility] Work Phone: Comment on above: The validity of the calculated GFR & GFRAA in patients over 70 years has not been determined. Clinical correlation is essential. Serum or plasma free prostat e specific antigen/total prostate specific antigen ratioon 09-11-2021 Free PSA/Total PSA [Mass fraction] 10.4 % . [facility] Work Phone: Comment on above: The table below list s the probability of prostate cancer formen with non-suspicious MENDOZA results and total PSA between4 and 10 ng/mL, by patient age (Jose David et al, KE 1998,[id number]). % Free PSA 50-64 yr 65-75 yr 0.00-10.00% 56% 55% 10.01-15.00% 24% 35% 15.01-20.00% 17% 23% 20.01-25.00% 10% 20% >25.00% 5% 9%Please note: Jose David et al did not make specific recommendations regarding the use of percent free PSA for any other population of men.Performed at: [facility] [id number] Director: Timmy Thompson PhD, Phone: [phone] Serum or plasma urea nitroge n measurement (mass/volume)on 09-11-2021 Urea nitrogen [Mass/Vol] 14 mg/dL 7-18 [facility] Work Phone: Thin prep Papanicolaou smear with manual screeningon 09-11-2021 Thin prep Papanicolaou smear with manual screening 21 U/L 15-37 [facility] Work Phone: Thin prep Papanicolaou smear with manual screening 9 5-15 [facility] Work Phone: Absolute lymphocyte counton 06-14-2021 Lymphocytes Auto (Unsp spec) [#/Vol] 1.48 10*3/uL 0.83-4.51 [facility] Work Phone: Basophil percentageon 2021 Basophils/100 WBC (Bld) 0.6 % 0-1 [facility] Work Phone: [phone] Bilirubin [Mass/Vol] 0.40 mg/dL 0.20-1.00 [facility] Work Phone: [phone] Comment on above: For patients on eltr ombopag therapy, use of [employer] [place] TBIL is not recommended. Chloride [Moles/Vol] 110 mmol/L 98-107 [facility] Work Phone: Cholesterol [Mass/Vol] 272 mg/dL <200 [facility] Work Phone: Comment on above: <200 mg/dL Desirable 200-240 mg/dL Borderline >240 mg/dL High Risk Eosinophils/100 WBC (Bld) 1.7 % 0-5 [facility] Work Phone: Glucose [Mass/Vol] 123 mg/dL 74-106 [place] Work Phone: Comment on above: Fasting Glucose resu lt from 100 to 125 mg/dL suggests IMPAIRED HOMEOSTASIS per A.D.A. criteria. Neutrophils (Bld) [#/Vol] 5.0 10*3/uL 2.0-7.7 [facility] Work Phone: [phone] Neutrophils/100 WBC (Bld) 69.7 % 47-70 [facility] Work Phone: [phone] Potassium [Moles/Vol] 5.1 mmol/L 3.5-5.1 [facility] Work Phone: Protein [Mass/Vol] 7.9 g/dL 6.4-8.2 [place] Work Phone: [phone] Sodium [Moles/Vol] 143 mmol/L 136-145 [place] Work Phone: Triglyceride [Mass/Vol] 125 mg/dL <199 [facility] Work Phone: Comment on above: The drugs N-Acetylcy steine and Metamizole may falsely depress this assay.Serum Triglycerides Reference Interval Normal <150 mg/dL Borderline high 150 - 199 mg/dL High 200 - 499 mg/dL Very High > or = 500 mg/dL WBC (Bld) [#/Vol] 7.2 10*3/uL 4.4-11.0 [place] Work Phone: Blood erythrocytes count (nu mber/volume)on 06-14-2021 RBC (Bld) [#/Vol] 5.34 10*6/uL 4.6-6.2 [facility] Work Phone: Blood hemoglobin measurement (mass/volume)on 06-14-2021 Hemoglobin (Bld) [Mass/Vol] 16.7 g/dL 13.0-16.5 [facility] Work Phone: Blood lymphocytes/100 leukoc yteson 06-14-2021 Lymphocytes/100 WBC (Bld) 20.6 % 19-41 [facility] Work Phone: Blood monocytes/100 leukocyt eson 06-14-2021 Monocytes/100 WBC (Bld) 7.1 % 0-10 [facility] Work Phone: Blood platelet mean volumeon 06-14-2021 Platelet mean volume (Bld) [Entitic vol] 11.1 fL 6.2-12.0 [facility] Work Phone: Determination of erythrocyte mean corpuscular volume (MCV)on 06-14-2021 MCV (RBC) [Entitic vol] 94.4 fL 80-94 [facility] Work Phone: Hematocrit Auto (Bld) [Volum e fraction]on 06-14-2021 Hematocrit (Bld) [Volume fraction] 50.4 % 40-54 [facility] Work Phone: Laboratory - Chemistry and C hemistry - challengeon 06-14-2021 ALP [Catalytic activity/Vol] 116 U/L 45-117 [facility] Work Phone: ALT [Catalytic activity/Vol] 36 U/L 16-61 [facility] Work Phone: [phone] CO2 [Moles/Vol] 30.0 mmol/L 21.0-32.0 [facility] Work Phone: Globulin (S) [Mass/Vol] 3.8 g/dL 2.2-4.2 [facility] Work Phone: Urea nitrogen/Creatinine [Mass ratio] 9.6 mg/mg 10-20 [facility] Work Phone: Laboratory - Hematology and Cell countson 06-14-2021 Erythrocyte distribution width (RBC) [Entitic vol] 44.6 fL 35.1-43.9 [facility] Work Phone: [phone] Erythrocyte distribution width (RBC) [Ratio] 12.9 % 11.6-14.6 [facility] Work Phone: [phone] Immature granulocytes/100 WBC (Bld) 0.300 % 0.0-0.9 [facility] Work Phone: [phone] Comment on above: IG% - Immature Granu locytes (promyelocytes, myelocytes and metamyelocytes) > 1% indicates that a LEFT SHIFT is Present. MCH (RBC) [Entitic mass] 31.3 pg 27.0-32.0 [facility] Work Phone: [phone] Nucleated RBC/100 WBC (Bld) [Ratio] 0 % 0-5 [facility] Work Phone: [phone] MCHC Auto (RBC) [Mass/Vol]on 06-14-2021 MCHC (RBC) [Mass/Vol] 33.1 g/dL 32-36 [facility] Work Phone: No Panel Informationon 06-14 Estimated GFR (MDRD) Amer 71 mL/min >60 [facility] Work Phone: [phone] Comment on above: GFR Calc Estimated GFR (MDRD) Non-Af Amer 59 mL/min >60 [facility] Work Phone: Comment on above: Non- GFR Calc Prostate Specific Antigen Screen 10.30 ng/mL 0.00-4.00 [facility] Work Phone: [phone] Comment on above: This test was perfor med using the TPSA assay method [facility]. Values obtained with differentassay methods cannot be used interchangably.When changing PSA assays in the course of monitoring apatient, additional sequential testing should be carriedout to confirm baseline values. Platelets bldon 06-14-2021 Platelets (Bld) [#/Vol] 299 10*3/uL 150-450 [facility] Work Phone: [phone] Serum or plasma albumin sylvain urement (mass/volume)on 06-14-2021 Albumin [Mass/Vol] 4.1 g/dL 3.2-5.0 [place] Work Phone: Serum or plasma albumin/glob ulin mass ratioon 06-14-2021 Albumin/Globulin [Mass ratio] 1.1 {ratio} 0.9-2.4 [facility] Work Phone: [phone] Serum or plasma calcium sylvain urement (mass/volume)on 06-14-2021 Calcium [Mass/Vol] 9.5 mg/dL 8.5-10.1 [place] Work Phone: [phone] Serum or plasma cholesterol in HDL measurement (mass/volume)on 06-14-2021 Cholesterol in HDL [Mass/Vol] 51 mg/dL >40 [facility] Work Phone: Comment on above: The drugs N-Acetylcy steine and Metamizole may falsely depress this assay. Reference Range HDL <40 mg/dL Low HDL Cholesterol HDL >or= 60 mg/dL High HDL Cholesterol Serum or plasma cholesterol in VLDL measurement (mass/volume)on 06-14-2021 Cholesterol in VLDL [Mass/Vol] 25 mg/dL 5-40 [facility] Work Phone: [phone] Serum or plasma creatinine m easurement (mass/volume)on 06-14-2021 Creatinine [Mass/Vol] 1.35 mg/dL 0.70-1.30 [facility] Work Phone: Comment on above: The validity of the calculated GFR & GFRAA in patients over 70 years has not been determined. Clinical correlation is essential. Serum or plasma low density lipoprotein (LDL) cholesterol measurement (mass/volume)on 06-14-2021 Cholesterol in LDL [Mass/Vol] 196 mg/dL 0-130 [facility] Work Phone: [phone] Serum or plasma urea nitroge n measurement (mass/volume)on 06-14-2021 Urea nitrogen [Mass/Vol] 13 mg/dL 7-18 [facility] Work Phone: [phone] Thin prep Papanicolaou smear with manual screeningon 06-14-2021 Thin prep Papanicolaou smear with manual screening 22 U/L 15-37 [facility] Work Phone: [phone] Thin prep Papanicolaou smear with manual screening 3 5-15 [facility] Work Phone: CHEST 2 VIEW PA AND LATon CHEST 2 VIEW PA AND LAT STUDY: Chest Radiographs; 02/18/19 09:59 INDICATION: Cough. COMPARISON: None Available. ACCESSION NUMBER(S): [id number] ORDERING CLINICIAN: CRISTIANE NAILS MD FINDINGS: CARDIOMEDIASTINAL SILHOUETTE: Cardiomediastinal silhouette is normal in size and configuration. LUNGS: Lungs are clear. ABDOMEN: No remarkable upper abdominal findings. BONES: No acute osseous changes IMPRESSION: There are no consolidations or pleural effusions. Signed by Saima Garza MD Electronically signed by: SAIMA GARZA MD [facility] Provider Note - ED v2on 01-22 Provider Note - ED v2 Provider Note - ED v2: Chart Review: ED NOTES ED NOTES: CC=COUGH/SINUS CONGESTION HPI= this a patient who recently had [place] and developed some upper respiratory symptoms which as turning into a sinus infection with sinus pressure and drainage as well as cough with some phlegm production and occasional wheeze. He states he's had a sinus infection that developed into a pneumonia in the pain. He denies any fever or chills he denies any sore throat he's had no nausea vomiting no joint pain or rash. SH= negative for smoking or alcohol PM HX= positive for pneumonia HISTORY OF PRESENTING ILLNESS PEDRO is a 49 year old Male and was seen by me at 18-Feb-2019 09:13. Triage Information: Most recent Vital Sign Value Date PAST MEDICAL HISTORY ATTESTATION: I have reviewed and confirmed nurse's/medic's notes for patient's medications, allergies, medical history, and surgical history ALLERGIES/INTOLERANCES: Allergy Allergen: penicillin Type: Drug Reaction: Swelling/Edema Throat Swelling HEALTH HISTORY: No documented data. OUTPATIENT MEDICATIONS: Home Medications Review Status for Reconciliation: N/A Med Status: N/A No documented data. SIGNIFICANT EVENTS: No documented data. REVIEW OF SYSTEMS CONSTITUTIONAL: POSITIVE for: malaise Negative for: chills and fever EYES: Negative for: redness ENMT Ears: Negative for: pain Nose: POSITIVE for: congestion and discharge Throat/Neck: Negative for: throat pain, neck pain and neck stiffness CARDIOVASCULAR: Negative for: chest pain, diaphoresis and edema RESPIRATORY: POSITIVE for: cough and wheezing Negative for: dyspnea and hemoptysis GASTROINTESTINAL: Negative for: abdominal pain, nausea and vomiting; MUSCULOSKELETAL: Negative for: joint pain and neck pain INTEGUMENTARY: Negative for: rash NEUROLOGICAL: Negative for: dizziness and headache; All other systems reviewed and are negative PHYSICAL EXAM CONSTITUTIONAL: Well appearing, well nourished, awake, alert, oriented to person, place, time/situation and in no apparent distress. HENMT: Airway patent, ears with clear tympanic membranes bilaterally. Nasal mucosa is edematous and by. Mouth with normal mucosa. Throat has no vesicles, no oropharyngeal exudates and uvula is midline. Face with no lymph node enlargement. EYES: Clear bilaterally, pupils equal, round and reactive to light. No redness or draining CARDIOVASCULAR: Normal rate, regular rhythm. Heart sounds S1, S2. No murmurs, rubs or gallops. PMI non-displaced. RESPIRATORY: Breath sounds are slightly diminished but no rales rhonchi or wheezes no dyspnea tachypnea and he can speak full sentences without GASTROINTESTINAL: Abdomen soft, non-distended, no rebound, no guarding. Bowel sounds normal in all 4 quadrants. NEUROLOGICAL: Alert and oriented, no focal deficits, no motor or sensory deficits. SKIN: Skin normal color for race, warm, dry and intact. No evidence of trauma. No right MEDICAL DECISION MAKING/ED COURSE MDM/ED COURSE: Chest x-rays interpreted by myself emergency physician was clear without infiltrate. Patient be started on Levaquin for but the size infection as well as bronchitis and also on an albuterol inhaler with PCP follow. CLINICAL IMPRESSION Diagnosis/Annotation: ED Dx Name:Acute bronchitis Code:J20.9 Name:Acute sinusitis Code:J01.90 Dispostion: discharged Type: home ATTESTATION CRITICAL CARE TIME Is this a critically ill patient: no Electronic Signatures: Cristiane Nails) (Signed 18-Feb-2019 10:14) Authored: Provider Note - ED v2 Last Updated: 18-Feb-2019 10:14 by Cristiane Nails) Normal [facility] [place] Vital Signs Date Time Vital Sign Value Performing Clinician Facility 06-10-2024 20:15-0400 Body height 182.88 cm Nichole Turk NP-C Work Phone: [facility] 06-10-2024 20:15-0400 Body mass index (BMI) [Ratio] 34.3 kg/m2 Nichole Turk ENGINE DISPATCHER-C Work Phone: [facility] 06-10-2024 20:15-0400 Body temperature 98.1 [degF] Nichole Turk ENGINE DISPATCHER-C Work Phone: [facility] 06-10-2024 20:15-0400 Body weight 114.75 kg Nichole Turk ENGINE DISPATCHER-C Work Phone: [facility] 06-10-2024 20:15-0400 Diastolic blood pressure 84 mm[Hg] Nichole Turk ENGINE DISPATCHER-C Work Phone: [facility] 06-10-2024 20:15-0400 Heart rate 98 /min Nichole Turk ENGINE DISPATCHER-C Work Phone: [facility] 06-10-2024 20:15-0400 Respiratory rate 18 /min Nichole Turk ENGINE DISPATCHER-C Work Phone: [facility] 06-10-2024 20:15-0400 SaO2% (BldA) [Mass fraction] 97 % Nicholejessy Turk ENGINE DISPATCHER-C Work Phone: [facility] 06-10-2024 20:15-0400 Systolic blood pressure 150 mm[Hg] Nichole Turk ENGINE DISPATCHER-C Work Phone: [facility] 05-23-2024 19:02-0500 Body height 180.3 cm Soraida Tone PA-C Work Phone: [facility] 05-23-2024 19:02-0500 Body mass index (BMI) [Ratio] 35.36 kg/m2 Soraida Tone PA-C Work Phone: [facility] 05-23-2024 19:02-0500 Body temperature 102.99 [degF] Soraida Tone PA-C Work Phone: [facility] 05-23-2024 19:02-0500 Body weight 115 kg Soraida Tone PA-C Work Phone: [facility] 05-23-2024 19:02-0500 Diastolic blood pressure 80 mm[Hg] Soraida Tone PA-C Work Phone: [facility] 05-23-2024 19:02-0500 Heart rate 108 /min Soraida Tone PA-C Work Phone: [facility] 05-23-2024 19:02-0500 Respiratory rate 20 /min Soraida Tone PA-C Work Phone: [facility] 05-23-2024 19:02-0500 SaO2% (BldA) [Mass fraction] 94 % Soraida Tone PA-C Work Phone: [facility] 05-23-2024 19:02-0500 Systolic blood pressure 147 mm[Hg] Soraida Tone PA-C Work Phone: [facility] 05-29-2022 15:19-0500 Body height 182.88 cm ENGINE DISPATCHER-C Nichole Turk ENGINE DISPATCHER Work Phone: [facility] 05-29-2022 15:16-0500 Body mass index (BMI) [Ratio] 33.3 kg/m2 ENGINE DISPATCHER-C Nichole Turk ENGINE DISPATCHER Work Phone: [facility] 05-29-2022 15:16-0500 Body temperature 97 [degF] ENGINE DISPATCHER-C Nichole Turk ENGINE DISPATCHER Work Phone: [facility] 05-29-2022 15:16-0500 Body weight 111.58 kg ENGINE DISPATCHER-C Nichole Turk ENGINE DISPATCHER Work Phone: [facility] 05-29-2022 15:16-0500 Diastolic blood pressure 86 mm[Hg] ENGINE DISPATCHER-C Nichole Turk ENGINE DISPATCHER Work Phone: [facility] 05-29-2022 15:16-0500 Heart rate 101 /min ENGINE DISPATCHER-C Nichole Turk ENGINE DISPATCHER Work Phone: [facility] 05-29-2022 15:16-0500 Respiratory rate 18 /min ENGINE DISPATCHER-C Nichole Turk ENGINE DISPATCHER Work Phone: [facility] 05-29-2022 15:16-0500 SaO2% (BldA) [Mass fraction] 95 % ENGINE DISPATCHER-C Nichole Turk ENGINE DISPATCHER Work Phone: [facility] 05-29-2022 15:16-0500 Systolic blood pressure 138 mm[Hg] ENGINE DISPATCHER-C Nichole Turk ENGINE DISPATCHER Work Phone: [facility] 04-30-2022 12:55-0500 Body mass index (BMI) [Ratio] 32.8 kg/m2 ENGINE DISPATCHER-C Nichole Turk ENGINE DISPATCHER Work Phone: [facility] 04-30-2022 12:55-0500 Body temperature 96.4 [degF] ENGINE DISPATCHER-C Nichole Turk ENGINE DISPATCHER Work Phone: [phone] [place] [address] 04-30-2022 12:55-0500 Body weight 109.76 kg ENGINE DISPATCHER-C Nichole Turk ENGINE DISPATCHER Work Phone: [facility] 04-30-2022 12:55-0500 Diastolic blood pressure 91 mm[Hg] ENGINE DISPATCHER-C Nichole Turk ENGINE DISPATCHER Work Phone: [facility] 04-30-2022 12:55-0500 Heart rate 80 /min ENGINE DISPATCHER-C Nichole Turk ENGINE DISPATCHER Work Phone: [phone] [place] [address] 04-30-2022 12:55-0500 Respiratory rate 16 /min ENGINE DISPATCHER-C Nichole Turk ENGINE DISPATCHER Work Phone: [facility] 04-30-2022 12:55-0500 SaO2% (BldA) [Mass fraction] 95 % ENGINE DISPATCHER-C Nichole Alvesson ENGINE DISPATCHER Work Phone: [facility] 04-30-2022 12:55-0500 Systolic blood pressure 133 mm[Hg] ENGINE DISPATCHER-C Nichole Alvesson ENGINE DISPATCHER Work Phone: [phone] [place] [address] 04-09-2022 13:01-0500 Body height 182.88 cm ENGINE DISPATCHER-C Nichole Turk ENGINE DISPATCHER Work Phone: [facility] 04-09-2022 13:01-0500 Body mass index (BMI) [Ratio] 32.3 kg/m2 ENGINE DISPATCHER-C Nichole Turk ENGINE DISPATCHER Work Phone: [facility] 04-09-2022 13:01-0500 Body temperature 96.2 [degF] ENGINE DISPATCHER-C Nichole Turk ENGINE DISPATCHER Work Phone: [facility] 04-09-2022 13:01-0500 Body weight 107.95 kg ENGINE DISPATCHER-C Nichole Turk ENGINE DISPATCHER Work Phone: [facility] 04-09-2022 13:01-0500 Diastolic blood pressure 76 mm[Hg] ENGINE DISPATCHER-C Nichole Turk ENGINE DISPATCHER Work Phone: [facility] 04-09-2022 13:01-0500 Heart rate 108 /min ENGINE DISPATCHER-C Nichole Turk ENGINE DISPATCHER Work Phone: [facility] 04-09-2022 13:01-0500 Respiratory rate 16 /min ENGINE DISPATCHER-C Nichole Turk ENGINE DISPATCHER Work Phone: [facility] 04-09-2022 13:01-0500 SaO2% (BldA) [Mass fraction] 94 % ENGINE DISPATCHER-C Nichole Turk ENGINE DISPATCHER Work Phone: [facility] 04-09-2022 13:01-0500 Systolic blood pressure 196 mm[Hg] ENGINE DISPATCHER-C Nichole Turk ENGINE DISPATCHER Work Phone: [facility] 04-02-2022 13:37-0500 Diastolic blood pressure 86 mm[Hg] ENGINE DISPATCHER-C Nichole Turk ENGINE DISPATCHER Work Phone: [facility] 04-02-2022 13:37-0500 Heart rate 75 /min ENGINE DISPATCHER-C Nichole Turk ENGINE DISPATCHER Work Phone: [facility] 04-02-2022 13:37-0500 Respiratory rate 16 /min ENGINE DISPATCHER-C Nichole Turk ENGINE DISPATCHER Work Phone: [facility] 04-02-2022 13:37-0500 SaO2% (BldA) [Mass fraction] 96 % ENGINE DISPATCHER-C Nichole Turk ENGINE DISPATCHER Work Phone: [facility] 04-02-2022 13:37-0500 Systolic blood pressure 131 mm[Hg] ENGINE DISPATCHER-C Nichole Turk ENGINE DISPATCHER Work Phone: [facility] 04-02-2022 13:00-0500 Body temperature 97.5 [degF] ENGINE DISPATCHER-C Nichole Turk ENGINE DISPATCHER Work Phone: [facility] 04-02-2022 11:04-0500 Body height 182.88 cm ENGINE DISPATCHER-C Nichole Turk ENGINE DISPATCHER Work Phone: [facility] Work Phone: 04-02-2022 11:04-0500 Body mass index (BMI) [Ratio] 33 kg/m2 ENGINE DISPATCHER-C Nichole Turk ENGINE DISPATCHER Work Phone: [facility] 04-02-2022 11:04-0500 Body weight 110.67 kg ENGINE DISPATCHER-C Nichole Turk ENGINE DISPATCHER Work Phone: [facility] 01-24-2022 08:56-0400 Body height 182.88 cm ENGINE DISPATCHER-C Nichole Turk ENGINE DISPATCHER Work Phone: [facility] Work Phone: 01-24-2022 08:51-0400 Body mass index (BMI) [Ratio] 32.4 kg/m2 ENGINE DISPATCHER-C Nichole Turk ENGINE DISPATCHER Work Phone: [facility] 01-24-2022 08:51-0400 Body temperature 97.9 [degF] ENGINE DISPATCHER-C Nichole Turk ENGINE DISPATCHER Work Phone: [facility] 01-24-2022 08:51-0400 Body weight 108.4 kg ENGINE DISPATCHER-C Nichole Turk ENGINE DISPATCHER Work Phone: [facility] 01-24-2022 08:51-0400 Diastolic blood pressure 85 mm[Hg] ENGINE DISPATCHER-C Nichole Burke ENGINE DISPATCHER Work Phone: [facility] 01-24-2022 08:51-0400 Heart rate 99 /min ENGINE DISPATCHER-C Nichole Turk ENGINE DISPATCHER Work Phone: [facility] 01-24-2022 08:51-0400 Respiratory rate 16 /min ENGINE DISPATCHER-C Nichole Turk ENGINE DISPATCHER Work Phone: [facility] 01-24-2022 08:51-0400 SaO2% (BldA) [Mass fraction] 99 % ENGINE DISPATCHER-C Nichole Turk ENGINE DISPATCHER Work Phone: [facility] 01-24-2022 08:51-0400 Systolic blood pressure 151 mm[Hg] ENGINE DISPATCHER-C Nichole Burke ENGINE DISPATCHER Work Phone: [facility] 09-11-2021 17:46-0400 Body height 182.88 cm [facility] Work Phone: 09-11-2021 17:46-0400 Body mass index (BMI) [Ratio] 32 kg/m2 [facility] Work Phone: 09-11-2021 17:46-0400 Body temperature 96.8 [degF] [facility] Work Phone: 09-11-2021 17:46-0400 Body weight 107.04 kg [facility] Work Phone: 09-11-2021 17:46-0400 Diastolic blood pressure 90 mm[Hg] [facility] Work Phone: 09-11-2021 17:46-0400 Heart rate 85 /min [facility] Work Phone: 09-11-2021 17:46-0400 Respiratory rate 18 /min [facility] Work Phone: 09-11-2021 17:46-0400 SaO2% (BldA) [Mass fraction] 96 % [facility] Work Phone: 09-11-2021 17:46-0400 Systolic blood pressure 152 mm[Hg] [facility] Work Phone: 06-14-2021 15:41-0400 Body mass index (BMI) [Ratio] 38.5 kg/m2 [facility] Work Phone: 06-14-2021 15:41-0400 Body temperature 97.7 [degF] [facility] Work Phone: 06-14-2021 15:41-0400 Body weight 128.82 kg [facility] Work Phone: 06-14-2021 15:41-0400 Diastolic blood pressure 70 mm[Hg] [facility] Work Phone: 06-14-2021 15:41-0400 Heart rate 109 /min [facility] Work Phone: 06-14-2021 15:41-0400 Respiratory rate 18 /min [facility] Work Phone: 06-14-2021 15:41-0400 SaO2% (BldA) [Mass fraction] 97 % [facility] Work Phone: 06-14-2021 15:41-0400 Systolic blood pressure 150 mm[Hg] [facility] Work Phone: 06-14-2021 15:41-0400 Body height 182.88 cm [facility] Work Phone: 06-14-2021 15:41-0400 Body mass index (BMI) [Ratio] 38.5 kg/m2 [facility] Work Phone: 06-14-2021 15:41-0400 Body temperature 97.7 [degF] [facility] Work Phone: 06-14-2021 15:41-0400 Body weight 128.82 kg [facility] Work Phone: 06-14-2021 15:41-0400 Diastolic blood pressure 70 mm[Hg] [facility] Work Phone: 06-14-2021 15:41-0400 Heart rate 109 /min [facility] Work Phone: 06-14-2021 15:41-0400 Respiratory rate 18 /min [facility] Work Phone: 06-14-2021 15:41-0400 SaO2% (BldA) [Mass fraction] 97 % [facility] Work Phone: 06-14-2021 15:41-0400 Systolic blood pressure 150 mm[Hg] [facility] Work Phone: Encounters Encounter Date Encounter Type Care Provider Facility Start: 07-11-2024 End: 07-11-2024 ambulatory Nichole Turk ENGINE DISPATCHER-C Work Phone: [facility] Work Phone: Start: 07-11-2024 End: 07-11-[address] Ken Mart MD -Laboratory Work Phone: Start: 07-11-2024 End: 07-11-2024 ambulatory Nichole Turk ENGINE DISPATCHER Facility:[facility] Start: 05-23-2024 End: 05-23-2024 Office outpatient new 45 minutes Soraida LIC Work Phone: [facility] Comment on above: Bronchitis (Primary Dx); Exposure to COVID-19 virus; Fever, unspecified fever cause Start: 12-31-2023 End: 12-31-2023 ambulatory Ken Mart Facility:[facility] Start: 06-30-2023 End: 06-30-2023 ambulatory [facility] Work Phone: Start: 06-30-2023 End: 06-30-2023 Patient encounter procedure [facility]-Laboratory Work Phone: Start: 07-07-2022 End: 07-07-2022 ambulatory ENGINE DISPATCHER-C Nichloe Turk ENGINE DISPATCHER Work Phone: [facility] Work Phone: Start: 07-07-2022 End: 07-07-2022 Patient encounter procedure ENGINE DISPATCHER-C Nichole Turk ENGINE DISPATCHER Work Phone: [facility]-Laboratory Start: 05-29-2022 End: 05-29-2022 Patient encounter procedure ENGINE DISPATCHER-C Nichole Turk ENGINE DISPATCHER Work Phone: [facility] Start: 04-30-2022 End: 04-30-2022 Patient encounter procedure ENGINE DISPATCHER-C Nichole Turk ENGINE DISPATCHER Work Phone: [facility] Start: 04-30-2022 Registered Recurring ENGINE DISPATCHER-C Nichole Turk ENGINE DISPATCHER Work Phone: [facility]-Radiation Oncology Start: 04-28-2022 Non-patient / Non-visit ENGINE DISPATCHER-C Deandre Turk ENGINE DISPATCHER Work Phone: [facility] Start: 04-25-[address] Angel Romero Facility:[id number] Start: 04-25-2022 Patient encounter procedure Angel Romero MD Work Phone: [id number] DO Work Phone: Start: 04-25-2022 Non-patient / Non-visit ENGINE DISPATCHER-C Deandre Turk ENGINE DISPATCHER Work Phone: [facility] Start: 04-23-2022 Non-patient / Non-visit ENGINE DISPATCHER-C Deandre Turk ENGINE DISPATCHER Work Phone: [facility] Start: 04-21-2022 Non-patient / Non-visit ENGINE DISPATCHER-C Deandre Turk ENGINE DISPATCHER Work Phone: [facility] Start: 04-17-2022 Non-patient / Non-visit ENGINE DISPATCHER-C Deandre Turk ENGINE DISPATCHER Work Phone: [facility] Start: 04-09-2022 End: 04-09-2022 ambulatory ENGINE DISPATCHER-Charlotte Turk ENGINE DISPATCHER Work Phone: [facility] Work Phone: Start: 04-09-2022 End: 04-09-2022 Patient encounter procedure ENGINE DISPATCHER-Charlotte Turk ENGINE DISPATCHER [facility] Phone: [facility] Start: 04-09-2022 Non-patient / Non-visit ENGINE DISPATCHER-Charlotte Turk ENGINE DISPATCHER Work Phone: [facility] Start: 04-09-2022 Registered Recurring ENGINE DISPATCHER-Charlotte Turk ENGINE DISPATCHER Work Phone[facility] Start: 04-09-2022 End: 04-09-2022 Patient encounter procedure ENGINE DISPATCHER-Charlotte Turk ENGINE DISPATCHER Work Phone: [facility] Start: 04-02-2022 End: 04-02-2022 Admission to same day surgery center ENGINE DISPATCHER-C Nichole Turk ENGINE DISPATCHER Work Phone[facility] Start: 04-02-2022 End: 04-02-2022 ambulatory ENGINE DISPATCHER-C Nichole Turk ENGINE DISPATCHER Work Phone: [facility] Work Phone: Start: 03-05-2022 Registered Recurring ENGINE DISPATCHER-Charlotte Turk ENGINE DISPATCHER Work Phone: [facility] Start: 02-04-2022 End: 02-04-2022 ambulatory ENGINE DISPATCHER-C Nichole Turk ENGINE DISPATCHER Work Phone: [facility] Work Phone: Start: 02-04-2022 End: 02-04-2022 Patient encounter procedure ENGINE DISPATCHER-Charlotte Turk ENGINE DISPATCHER Work Phone: [facility]-Nuclear Medicine, [facility] Start: 01-31-2022 End: 01-31-2022 ambulatory ENGINE DISPATCHER-C Nichole Turk ENGINE DISPATCHER Work Phone: [facility] Work Phone: Start: 01-31-2022 End: 01-31-2022 Patient encounter procedure ENGINE DISPATCHER-Charlotte Turk ENGINE DISPATCHER Work Phone: [facility], [facility] Start: 01-24-2022 End: 01-24-2022 Patient encounter procedure ENGINE DISPATCHER-Chralotte Turk ENGINE DISPATCHER Work Phone: [facility] Start: 12-30-2021 End: 12-30-2021 ambulatory [facility] Work Phone: Start: 12-30-2021 End: 12-30-2021 Patient encounter procedure [facility]-Laboratory, Specimen Start: 12-12-2021 End: 12-12-2021 ambulatory [facility] Work Phone: Start: 12-12-2021 End: 12-12-2021 Patient encounter procedure [facility] Start: 09-11-2021 End: 09-11-2021 Patient encounter procedure [facility], Specimen Start: 06-14-2021 End: 06-14-2021 Patient encounter procedure [facility], Specimen Start: 06-14-2021 Patient encounter status [facility] Procedures Date Procedure Procedure Detail Performing Clinician Start: 05-23-2024 Iaadiadoo influenza Jason Omalley MD Work Phone: Start: 05-23-2024 SARS-CoV-2 (COVID-19 ) Ag [Presence] in Respiratory specimen by Rapid immunoassay Brandon Omalley MD Work Phone: Start: 04-25-2022 Follow-up visit Start: 04-09-2022 MRI of pelvis with contrast ENGINE DISPATCHER-Charlotte Turk ENGINE DISPATCHER Work Phone: Start: 04-02-2022 Space OAR (Not Applicable) ENGINE DISPATCHER-Charlotte Turk ENGINE DISPATCHER Work Phone: Start: 03-05-2022 Positron emission tomography with computed tomography ENGINE DISPATCHER-Charlotte Turk ENGINE DISPATCHER Work Phone: Start: 02-04-2022 Radionuclide whole b edilia bone study ENGINE DISPATCHER-Charlotte Turk ENGINE DISPATCHER Work Phone: Start: 01-31-2022 Computed tomography of abdomen and pelvis with contrast ENGINE DISPATCHERBuzz Turk ENGINE DISPATCHER Work Phone: Vasectomy Angel storm MD Work Phone: Plan of Treatment Date Care Activity Detail Author Start: 02-25-2033 DTaP/Tdap/Td Vaccines (3 - Td or Tdap) DTaP/Tdap/Td Vaccines (3 - Td or Tdap) [facility] Start: 11-22-2023 COVID-19 Vaccine () COVID-19 Vaccine () [facility] Start: 11-22-2023 Influenza vaccination Influenza Vaccine (#1) [facility] Start: 04-02-2022 Anesthesia anorectal procedure ANESTH ANORECTAL SURGERY [facility] Start: 04-02-2022 Plmt interstitial dev radiat tx prostate 1/mult PLACE RT DEVICE/MARKER PROS [facility] Start: 04-02-2022 Transperineal plmt biodegradable matrl 1/robotics systems engineer njx TPRNL PLMT BIODEGRDABL MATRL [facility] Start: 04-02-2022 Ambulation without limitation [facility] Start: 04-02-2022 Medication education [facility] Start: 04-02-2022 Patient discharge [facility] Start: 04-02-2022 Taking patient vital signs [facility] Start: 04-02-2022 [facility] Start: 2019 Pneumococcal vaccination Pneumococcal Vaccine (1 of 1 - PCV) [facility] Start: 2019 Zoster Vaccines (1 of 2) Zoster Vaccines (1 of 2) [facility] Start: 02-08-1988 Hepatitis B Vaccines (1 of 3 - 19+ 3-dose series) Hepatitis B Vaccines (1 of 3 - 19+ 3-dose series) [facility] Start: 1987 Hepatitis C screening Hepatitis C Screening [facility] Start: 1970 MMR Vaccines (1 of 1 - Standard series) MMR Vaccines (1 of 1 - Standard series) [facility] Start: 1969 HIV screening HIV Screening [facility] Start: 1969 Lipid panel Lipid Panel [facility] Start: 1969 Screening for malignant neoplasm of colon [facility] Start: 1969 Yearly Adult Physical Yearly Adult Physical [facility] Patient referral [facility] Work Phone: Immunizations Immunization Date Immunization Notes Care Provider Fa cility 01-08-2023 influenza virus vaccine, unspecified formulation Soraida Wayne PA-C Work Phone: [facility] Work Phone: 06-29-2020 Covid (Pfizer) [facility] 06-08-2020 Covid (Pfizer) [facility] Payers Date Payer Category Payer Managed Care (Private) [facility] [id number] 2023 Private Health Insurance [id number] 2023 Self-pay [id number] 2023 Unknown [id number] 1969 Unknown [id number] Unknown [facility] Unknown [id number] Unknown [id number] Social History Date Type Detail Facility Tobacco smoking stat us NHIS Unknown if ever smoked [facility] Work Phone: Start: 1970 Sex Assigned At Male [facility] Start: 01-24-2022 End: 03-31-2022 Tobacco smoking status NHIS Unknown if ever smoked [facility] Start: 05-23-2024 [facility] [facility] DO Work Phone: Start: 03-31-2022 End: 05-23-2024 Tobacco smoking status NHIS Never smoked tobacco [facility] Work Phone: Start: 05-23-2024 Tobacco use and exposure Smokeless tobacco non-user [facility] Work Phone: Start: 05-23-2024 Alcoholic beverage intake Current drinker of alcohol (finding) [facility] Work Phone: Start: 05-23-2024 Tobacco use panel [facility] Work Phone: Start: 1970 Sex assigned at Not on file [facility] Work Phone: Start: 07-15-2024 Sex Male (finding) [facility] Medical Equipment Procedure Code Equipment Code Equipment Origin al Text Equipment Identifier Dates HYDROGEL, 10ML FDA Start: 04-02-2022 MARKERS, FIDUCIA L GOLD FDA Start: 04-02-2022 HYDROGEL, 10ML FDA Start: 04-02-2022 MARKERS, FIDUCIA L GOLD FDA Start: 04-02-2022 HYDROGEL, 10ML FDA Start: 04-02-2022 MARKERS, FIDUCIA L GOLD FDA Start: 04-02-2022 HYDROGEL, 10ML FDA Start: 04-02-2022 MARKERS, FIDUCIA L GOLD FDA Start: 04-02-2022 Goals Date Patient Goal Desired Activity /State Mental Status Date Assessment Result Facility 04-02-2022 Cognitive function Voice/Name [facility] Work Phone: Clinical Notes 05-23-2024 to 06-10-2024 Note Date & Type Note Facility 06-10-2024 Evaluation note Diagnosis Onset Date Resolution Bronchitis acute June 10 4:56pm Maxillary sinusitis, acute acute June 10, 2024 4:56pm [facility] Work Phone: 1(951) 439-437403-03-2025 History of Present illness Narrative* Soraida Wayne PA-C - 05/23/2024 6:55 PM EST Subjective Patient ID: Pedro Hdz is a 54 y.o. male. They present today with a chief complaint of Cough. History of Present Illness Pt presented with fever and cough x 2days. Also reports mild nasal congestion. Denies sore throat, SOB, chest tightness. Denies hx of chronic lung condition. Denies exposure. He is taking OTC cold meds with minimal relief. Cough Associated symptoms include a fever and rhinorrhea. Pertinent negatives include no chest pain, chills, ear pain, eye redness, rash, sore throat, shortness of breath or wheezing. Past Medical History Allergies as of 05/23/2024 - Reviewed 05/23/2024 Allergen Reaction Noted Bee venom protein (honey bee) Anaphylaxis 06/26/2017 Penicillins Anaphylaxis 10/31/2014 (Not in a hospital admission) History reviewed. No pertinent past medical history. History reviewed. No pertinent surgical history. reports that he has never smoked. He has never used smokeless tobacco. He reports current alcohol use. Review of Systems Review of Systems Constitutional: Positive for fever. Negative for chills and fatigue. HENT: Positive for congestion and rhinorrhea. Negative for ear discharge, ear pain, sinus pain, sneezing and sore throat. Eyes: Negative for pain, discharge, redness and itching. Respiratory: Positive for cough. Negative for chest tightness, shortness of breath and wheezing. Cardiovascular: Negative for chest pain. Gastrointestinal: Negative for abdominal pain, diarrhea, nausea and vomiting. Musculoskeletal: Negative for arthralgias and joint swelling. Skin: Negative for rash. Objective Vitals: 05/23/24 1902 BP: 147/80 Pulse: 108 Resp: 20 Temp: (!) 39.4 C (103 F) TempSrc: Oral SpO2: 94% Weight: 115 kg (253 lb 8.5 oz) Height: 1.803 m (5' 11) No LMP for male patient. Physical Exam Constitutional: Appearance: Normal appearance. HENT: Head: Normocephalic and atraumatic. Right Ear: Tympanic membrane, ear canal and external ear normal. Left Ear: Tympanic membrane, ear canal and external ear normal. Nose: No rhinorrhea. Mouth/Throat: Pharynx: No oropharyngeal exudate or posterior oropharyngeal erythema. Cardiovascular: Rate and Rhythm: Regular rhythm. Tachycardia present. Heart sounds: No murmur heard. Pulmonary: Effort: Pulmonary effort is normal. No respiratory distress. Breath sounds: No stridor. No wheezing, rhonchi or rales. Lymphadenopathy: Cervical: No cervical adenopathy. Skin: General: Skin is warm and dry. Neurological: Mental Status: He is alert and oriented to person, place, and time. Psychiatric: Mood and Affect: Mood normal. Procedures Point of Care Test & Imaging Results from this visit Results for orders placed or performed in visit on 05/23/24 POCT Covid-19 Rapid Antigen Result Value Ref Range POC MARILU-COV-2 AG Presumptive negative test for SARS-CoV-2 (no antigen detected) Presumptive negative test for SARS-CoV-2 (no antigen detected) POCT Influenza A/B manually resulted Result Value Ref Range POC Rapid Influenza A Negative Negative POC Rapid Influenza B Negative Negative XR chest 2 views Result Date: 05/23/2024 Interpreted By: Shama Nazario, STUDY: XR CHEST 2 VIEWS 05/23/2024 7:22 pm INDICATION: Signs/Symptoms:low oxygen and fever COMPARISON: 02/18/2019 ACCESSION NUMBER(S): [id number] ORDERING CLINICIAN: BRANDON OMALLEY TECHNIQUE: Two views of the chest FINDINGS: There are no infiltrates or effusions. Pulmonaryvascularity and cardiac silhouette appear normal. Mild pleural thickening is seen in the right lateral chest similar to the prior exam no pneumothorax No acute abnormalities and no change since the prior exam Signed by: Shama Nazario 05/23/2024 7:45 PM Dictation workstation: [id number] Diagnostic study results (if any) were reviewed by Soraida Wayne PA-C. Assessment/Plan Allergies, medications, history, and pertinent labs/EKGs/Imaging reviewed by Soraida Wayne PA-C. Medical Decision Making Fever with sinus tachycardia but overall NAD, lung CTAB, POCT negative, CXR ordered due to concernsfor fever, no acute findings Possible flu symptoms even though rapid test negative Will treat as viral syndrome/bronchitis Educated when need to seek emergent medical intervention Orders and Diagnoses Diagnoses and all orders for this visit: Bronchitis - predniSONE (Deltasone) 20 mg tablet; Take 1 tablet (20 mg) by mouth 2 times a day for 5 days. - azithromycin (Zithromax) 250 mg tablet; Take 2 tabs (500 mg) by mouth today, than 1 daily for 4 days. Exposure to COVID-19 virus - POCT Covid-19 Rapid Antigen - POCT Influenza A/B manually resulted Fever, unspecified fever cause - XR chest 2 views; Future Medical Admin Record Patient disposition: Home Electronically signed by Soraida Wayne PA-C 12:27 PM [facility] Phone: 1(750) 618-964303-03-2025 Instructions* Patient Instructions* Soraida Wayne PA-C - 05/23/2024 6:55 PM EST Take medications as instructed, continue OTC cold meds, rest, hydration F/U with PCP for lingering symptoms ER for red flags [facility] Work [facility]: [facility] note* Diagnosis Onset Date Resolution Status Wellness examination acute [facility] Work Phone: Evaluation note* Diagnosis Onset Date Resolution Status Wellness examination acute Elevated PSA acute Syncopal episodes acute Hypertension [facility] Work Phone: Evaluation note* Diagnosis Onset Date Resolution Status Elevated PSA acute Syncopal episodes acute Hypertension [facility] Work Phone: Evaluation note* Diagnosis Onset Date Resolution Status [id number] acute [facility] Work Phone: Evaluation note* Diagnosis Onset Date Resolution Status [id number] acute [id number] acute [facility] Work Phone: Evaluation noteNo assessment information available [facility] Work Phone: Evaluation note* Diagnosis Bronchitis- Primary Bronchitis, not specified as acute or chronic Exposure to COVID-19 virus Fever, unspecified fever cause Fever, unspecified fever cause documented in this encounter [facility] Work Phone: Hospital Discharge instructions Additional Instructions [facility]: Reason for referral (narrative)No reason for referral information availableWCosho[facility] Work Phone: Summary Purpose Family History No Family History Records Found Relationship Condition Age at Onset Recorded Date/T russell father Hypertension Unknown sister Crohn's disease Unknown grandfather Malignant melanoma Unknown Neoplasm of brain Unknown grandmother Malignant neoplasm of lung Unknown uncle Cardiac disease Unknown Unknown Family Member Name Dates Details Family history of hypertensi on: Father(V17.49, Z82.49) Status:Active Family history of Crohn's di sease: Sister(V18.59, Z83.79) Status:Active Family history of malignant melanoma: Grandfather(V16.8, Z80.8) Status:Active Family history of neoplasm o f brain: Grandfather(V19.8, Z84.89) Status:Active Family history of lung cance r: Grandmother(V16.1, Z80.1) Status:Active Family history of cardiac di sorder: Uncle(V17.49, Z82.49) Status:Active Advance Directives No Advanced Directives Records Found Advance Directive Response Recorded Date/ Time Living Will No March 31 3 9:11am Power of Clark Driver No March 31 023 9:11am Advance Directive Response Recorded Date/ Time Living Will No March 31 3 10:11am Power of Clark Driver No March 31 023 10:11am Chief Complaint and Reason for Visit Chief Complaint Annual wellness exam PE/medrefills/labs Reason for Visit Wellness examination Chief Complaint Annual wellness exam PE/medrefills/labs Hypertension Reason for Visit Wellness examination Elevated PSA Syncopal episodes Hypertension Chief Complaint Hypertension Reason for Visit Elevated PSA Syncopal episodes Hypertension Chief Complaint consult - prostate STAGING FOR PROSTATE CANCER MALIGNANT NEOPLASM OF PROSTATE Reason for Visit [id number] Chief Complaint consult - prostate STAGING FOR PROSTATE CANCER MALIGNANT NEOPLASM OF PROSTATE MALIGNANT NEOPLASM OF PROSTATE SPACE OARS AND GOLD MARKERS Reason for Visit [id number] Chief Complaint consult - prostate STAGING FOR PROSTATE CANCER MALIGNANT NEOPLASM OF PROSTATE SPACE OARS AND GOLD MARKERS f/u MALIGNANT NEOPLASM OF PROSTATE unfav inter risk prst cancer, eval disease extent Reason for Visit [id number] Chief Complaint SPACE OARS AND GOLD MARKERS f/u unfav inter risk prst cancer, eval disease extent Amb Documentation Amb Documentation Amb Documentation Amb Documentation MALIGNANT NEOPLASM OF PROSTATE MALIGNANT NEOPLASM OF PROSTATE 1 month f/u post SBRT PSA Reason for Visit [id number] Chief Complaint PSA Chief Complaint Admit Date Sinus infection/Chest cold June 10, 2 025 4:56pm Reason for Visit Admit Date Bronchitis June 10, 2024 4:5 6pm Maxillary sinusitis, acute June 10, 2 025 4:56pm Chief Complaint Patient is here to establish care and treatment for prostate cancer, self referred with review of recent testing. CV Additional Source Comments (unrecognized sect ion and content) No Status Records FoundNo Status Records FoundNo Status Records FoundNo Status Records Found INFORMATION SOURCE (unrecogn ized section and content) DATE CREATED AUTHOR 02/24/2019 [facility] [place] DATE CREATED AUTHOR AUTHOR'S ORGANIZ ATION 04/26/2022 [employer] DATE CREATED AUTHOR AUTHOR'S ORGANIZ ATION 04/26/2022 [facility] DATE CREATED AUTHOR AUTHOR'S ORGANIZ ATION [facility]/20[facility] Goals (unrecognized section and content) Goals may be documented in a n alternate sectionGoals may be documented in an alternate sectionGoals may be documented in an alternate sectionGoals may be documented in an alternate sectionGoals may be documented in an alternate sectionGoals may be documented in an alternate sectionGoals may be documented in an alternate sectionGoals may be documented in an alternate section Care Teams (unrecognized sec tion and content) Team Status: Active Member Role Status Dates Nichole Turk NP, ENGINE DISPATCHER-C Primary Care Provider Active Team Status: Inactive Member Role Status Dates Nichole Turk ENGINE DISPATCHER, ENGINE DISPATCHER-C Primary Care Provider Active Dr. Joseph Senior DO Attending Provider Active Dr. Ken Mart MD Referring Provider Active Team Status: Inactive Member Role Status Dates Nichole Turk ENGINE DISPATCHER, ENGINE DISPATCHER-C Primary Care Provider, Referr ing Provider Active Dr. Joseph Senior DO Attending Provider Active Team Status: Active Member Role Status Dates Nichole Turk ENGINE DISPATCHER, ENGINE DISPATCHER-C Primary Care Provider Active Dr. Joseph Senior DO Attending Provider, Referring P rovider Active Team Status: Active Member Role Status Dates Nichole Turk ENGINE DISPATCHER, ENGINE DISPATCHER-C Primary Care Provider Active Dr. Joseph Senior DO Attending Provider Active Team Status: Inactive Member Role Status Dates Nichole Turk ENGINE DISPATCHER, ENGINE DISPATCHER-C Primary Care Provider Active Dr. Ken Mart MD Attending Provider Active Team Status: Inactive Member Role Status Dates Nichole Turk ENGINE DISPATCHER, ENGINE DISPATCHER-C Primary Care Provider Active Dr. Ken Mart MD Attending Provider, Referr ing Provider Active Team Status: Inactive Member Role Status Dates Nichole Turk ENGINE DISPATCHER, ENGINE DISPATCHER-C Primary Care Provider Active Dr. Joseph Senior DO Attending Provider, Referring P rovider Active Team Status: Inactive Member Role Status Dates Nichole Turk ENGINE DISPATCHER, ENGINE DISPATCHER-C Primary Care Provider Active Dr. Joseph Senior DO Attending Provider Active Team Status: Inactive Member Role Status Dates Nichole Burke ENGINE DISPATCHER, ENGINE DISPATCHER-C Primary Care Provider Active Start: June 10, 2024 End: June 10, 2024 Nichole Turk ENGINE DISPATCHER, ENGINE DISPATCHER-C Attending Provider Active Start: June 10, 2024 End: June 10, 2024 Nichole Turk ENGINE DISPATCHER, ENGINE DISPATCHER-C Referring Provider Active Start: June 10, 2024 End: June 10, 2024 Team Status: Inactive Member Role Status Dates Nichole Turk ENGINE DISPATCHER, ENGINE DISPATCHER-C Primary Care Provider Active Start: July 11, 2024 End: July 11, 2024 Dr. Ken Mart MD Attending Provider Active Start: July 11, 2024 End: July 11, 2024 Dr. Ken Mart MD Referring Provider Active Start: July 11, 2024 End: July 11, 2024 Reason for Visit (unrecogniz ed section and content) Reason Comments Cough FOR RECORDS PERTAINING TO PATIENTS WHO ARE OR HAVE BEEN ENROLLED IN A CHEMICAL DEPENDENCY/SUBSTANCEABUSE PROGRAM, SOME INFORMATION MAY BE OMITTED. This clinical summary was aggregated from multiple sources. Caution should be exercised in using it in the provision of clinical care. This summary normalizes information from multiple sources, and as a consequence, information in this document may materially change the coding, format and clinical context of patient data. In addition, data may be omitted in some cases. CLINICAL DECISIONS SHOULD BE BASED ON THE PRIMARY CLINICAL RECORDS. [facility]. provides no warranty or guarantee of the accuracy or completeness of information in this document.
[2025-02-08 21:34] LABS: Hematocrit 46.6 % (40-54); Hemoglobin 15.3 g/dL (13.0-16.5); Immature Granulocytes Count 0.020 X10^3/uL (0.0-0.0); Mean Corp Hgb Conc 32.8 g/dL (32-36); Mean Corpuscular Volume 92.5 fL (80-94); Mean Platelet Vol. 10.6 fl (6.2-12.0); NRBC Flagged by Analyzer 0 % (0-5); Platelet Count 272 K/mm3 (150-450); RBC Distribution Width CV 13.2 % (11.6-14.6); RBC Distribution Width SD 44.6 fl (35.1-43.9); Red Blood Count 5.04 M/mm3 (4.6-6.2); White Blood Count 6.2 K/mm3 (4.4-11.0)
[2025-02-08 21:52] LABS: AST(SGOT) 27 U/L (<=37); Alanine Aminotransfer ALT/SGPT 35 U/L (<=46); Albumin, Serum 4.6 g/dL (3.5-5.0); Alkaline Phosphatase 93 U/L (40-129); Anion Gap 10 (5-15); BUN 11 mg/dL (4-19); BUN/Creat Ratio 11.1 RATIO (10-20); Calcium,Total 9.7 mg/dL (7.6-11.0); Carbon Dioxide 25.3 mmol/L (21.0-32.0); Chloride 105 mmol/L (98-108); Cholesterol 280 mg/dL (<=200); Globulin 2.9 g/dL (2.2-4.2); Glucose 96 mg/dL (70-99); Low Density Lipoprotein Calc. 203 mg/dL; Potassium 4.3 mmol/L (3.3-5.1); Triglycerides 160 mg/dL; Very Low Density Lipoprotein 32 mg/dL (5-40); cholesterol:hdl ratio screen 5.96
== END | disposition home or self-care (01) ==
PROVIDERS: PCP Nurse Practitioner; Visit Provider Nurse Practitioner
DX: Z00.00 Encounter for general adult medical examination without abnormal findings (principal)
CPT/HCPCS: 80053; 80061; 85025